=== PATIENT | male | born 1945 | race Two or more races ===

== ENCOUNTER 2020-05-09 11:17 | Emergency (ER) | payer MEDICARE, MEDICAID ==
[~2020-05-09] VITALS: Ht 170.2 cm; Wt 78.8 kg
[~2020-05-09 11:17] MED LIST: ASPI-611 PO; ERGO500041 PO; HYDR-3964 PO; NITR0.4T SL; NOR5T PO; PANT40TA39 PO; ROSU20TA2 PO
[2020-05-09 11:51] VITALS: BP 167/86
[2020-05-09] MEDS ORDERED: ketorolac trometh. 30mg/ml inj. IM ONE (13:05)
[2020-05-09] MEDS ORDERED: CYCL-1 PO (13:08)
== END 2020-05-09 13:23 | disposition home or self-care (01) ==
LOC: ER 11:17
DX: M25.551 Pain in right hip (principal); I25.2 Old myocardial infarction; Z98.61 Coronary angioplasty status; Z95.1 Presence of aortocoronary bypass graft; Z88.2 Allergy status to sulfonamides; Z79.82 Long term (current) use of aspirin; Z79.899 Other long term (current) drug therapy
CPT/HCPCS: 73502; 96372; 99283; J1885

== ENCOUNTER 2022-10-01 20:23 | Inpatient (IN) | payer BC, MEDICAID ==
[~2022-10-01] VITALS: Ht 170.2 cm; Wt 72.5 kg
[~2022-10-01 20:23] MED LIST changes: +ALBU6.7H14 INH; +ASPI-1071 PO; -ASPI-611 PO; +ATOR20TA66 PO; +BUDE10.22 INH; +CLOP75TA34 PO; +EMPA10TA PO; -ERGO500041 PO; -HYDR-3964 PO; +HYDR-3972 PO; +LISI2.5T14 PO; +METO-395 PO; -NITR0.4T SL; +NITR0.4T51 SL; -NOR5T PO; +OXYB5TAB16 PO; +PRED10TA23 PO; -ROSU20TA2 PO
[2022-10-01 20:44] LABS: BASOPHILS # (AUTO) 0.2 X10'3 (0-0.2); BASOPHILS % (AUTO) 0.6 % (0-1); EOSINOPHILS # (AUTO) 0.1 X10'3 (0-0.9); EOSINOPHILS % (AUTO) 0.4 % (0-6); HEMATOCRIT 26.4 % (42.0-52.0); LYMPHOCYTES # (AUTO) 3.2 X10'3 (1.1-4.8); LYMPHOCYTES % (AUTO) 13.7 % (21-51); MEAN CORPUSCULAR HEMOGLOBIN 22.9 PG (27.0-31.0); MEAN CORPUSCULAR HGB CONC 30.4 g/dL (33.0-36.5); MEAN CORPUSCULAR VOLUME 75.2 FL (78-98); MEAN PLATELET VOLUME 8.9 FL (7.4-10.4); MONOCYTES # (AUTO) 1.3 X10'3 (0-0.9); MONOCYTES % (AUTO) 5.7 % (2-12); NEUTROPHILS # (AUTO) 18.4 X10'3 (1.8-7.7); NEUTROPHILS % (AUTO) 79.6 % (42-75); PLATELET COUNT 217 X10'3 (140-440); RED BLOOD COUNT 3.52 X10'6 (4.70-6.10); RED CELL DISTRIBUTION WIDTH 18.7 % (11.5-14.5); WHITE BLOOD COUNT 23.1 X10'3 (4.5-11.0)
[2022-10-01 20:55] LABS: ALANINE AMINOTRANSFERASE 63 U/L (12-78); ALBUMIN 2.6 G/DL (3.4-5.0); ALBUMIN/GLOBULIN RATIO 0.8 (1.1-1.5); ALKALINE PHOSPHATASE 102 IU/L (46-116); ANION GAP 17 (8-16); ASPARTATE AMINO TRANSFERASE 18 U/L (10-37); BILIRUBIN,TOTAL 0.4 MG/DL (0.1-1.0); BLOOD UREA NITROGEN 12 MG/DL (7-18); BUN/CREATININE RATIO 9.2 (10.0-20.0); CALCIUM 8.6 MG/DL (8.5-10.1); CHLORIDE 107 MMOL/L (99-107); CREATININE 1.31 MG/DL (0.60-1.10); GLUCOSE 166 MG/DL (70-104); POTASSIUM 3.4 MMOL/L (3.5-5.1); SODIUM 144 MMOL/L (135-145); TOTAL CARBON DIOXIDE 20.4 MMOL/L (24-32); eGFR 53 ML/MIN
[2022-10-01] MEDS ORDERED: furosemide 10 MG/1 ML 10ml inj IV ONE (21:50)
[2022-10-01] MEDS ORDERED: POTASSIUM BICARB 20meq eff tab 20 MEQ TABLET.EFF PO ONE (21:55)
[2022-10-01 22:17] LABS: ANISOCYTOSIS 2+; HYPOCHROMASIA 2+; LARGE PLATELETS FEW; MICROCYTOSIS 1+; PLATELET ESTIMATE NORMAL; SMUDGE CELLS 1+; TOTAL CELLS COUNTED 100
[2022-10-01 22:18] LABS: POLYCHROMASIA FEW; TARGET CELLS FEW
[2022-10-01 22:19] LABS: ELLIPTOCYTES FEW
[2022-10-01] MEDS ORDERED: magnesium hydroxide 30ml (MOM) UD suspension PO PRN (23:10)
[2022-10-01] MEDS ORDERED: potassium Cl 40MEQ/1/2NS 520ml 520 ML IV PRN (23:10)
[2022-10-01] MEDS ORDERED: acetaminophen 325mg tablet PO PRN (23:10)
[2022-10-01] MEDS ORDERED: mag hydrox/Alum hydrox/simeth 30ml oral suspension PO PRN (23:10)
[2022-10-01] MEDS ORDERED: ondansetron/PF 4mg/2ml inj IV PRN (23:10)
[2022-10-01] MEDS ORDERED: magnesium 4gm in 100ml NS 100 ML IV PRN (23:10)
[2022-10-01] MEDS ORDERED: magnesium 2GM in 50ml NS 50 ML IV PRN (23:10)
[2022-10-01] MEDS ORDERED: potassium Cl 20 mEq SR tablet PO PRN (23:10)
[2022-10-01] MEDS ORDERED: magnesium Cl slow-release 64mg tablet PO PRN (23:10)
[2022-10-01] MEDS ORDERED: sodium ferric gluc complex inj 125 MG in normal saline 100ml IV soln 100 ML IV ONE (23:15)
[2022-10-01] MEDS: potassium Cl 20 mEq SR tablet PO PRN (23:23)
[2022-10-01] MEDS ORDERED: LISI20TA28 PO (23:50)
[2022-10-01] MEDS ORDERED: ALBU90AE2 IH (23:50)
[2022-10-01] MEDS ORDERED: EMPA10TA PO (23:51)
[2022-10-01] MEDS ORDERED: CLOP75TA34 PO (23:53)
[2022-10-01] MEDS ORDERED: METO-384 PO (23:54)
[2022-10-01] MEDS ORDERED: OXYB5TAB16 PO (23:55)
[2022-10-01] MEDS ORDERED: ATOR80TA PO (23:57)
[2022-10-01] MEDS ORDERED: NITR0.4T51 SL (23:58)
[2022-10-02] VITALS (7 sets, daily range): BP systolic 90–109; BP diastolic 45–66
[2022-10-02] MEDS ORDERED: ASPI81TA52 PO
[2022-10-02] MEDS ORDERED: BUDE10.22 INH (00:02)
[2022-10-02] MEDS ORDERED: AMLO5TAB16 PO (00:06)
[2022-10-02] MEDS ORDERED: PANT40TA54 PO (00:06)
[2022-10-02] MEDS ORDERED: LISI2.5T14 PO (00:18)
[2022-10-02] MEDS ORDERED: nitroGLYCERIN 0.4mg SUBLingual tab SL PRN (00:30)
[2022-10-02] MEDS: HYDROcodone/acetaminophen 10/325mg tab PO SCH ×3 (01:05→16:13)
[2022-10-02] MEDS ORDERED: albuterol 2.5 MG/3 ML nebule NEB PRN (01:05)
[2022-10-02] MEDS: albuterol 2.5 MG/3 ML nebule NEB SCH ×4 (03:00→19:51)
--- NOTE | 2022-10-02 06:20 | NUR ---
Patient in room PCU 3016. I have received report from ALYSE Tsang and had the opportunity to ask questions and assume patient care.
[2022-10-02 06:21] LABS: BASOPHILS # (AUTO) 0.1 X10'3 (0-0.2); BASOPHILS % (AUTO) 0.4 % (0-1); EOSINOPHILS # (AUTO) 0.1 X10'3 (0-0.9); EOSINOPHILS % (AUTO) 0.7 % (0-6); HEMATOCRIT 26.4 % (42.0-52.0); HEMOGLOBIN 8.1 g/dl (14.0-17.9); LYMPHOCYTES # (AUTO) 3.5 X10'3 (1.1-4.8); LYMPHOCYTES % (AUTO) 15.6 % (21-51); MEAN CORPUSCULAR HEMOGLOBIN 23.2 PG (27.0-31.0); MEAN CORPUSCULAR HGB CONC 30.8 g/dL (33.0-36.5); MEAN CORPUSCULAR VOLUME 75.3 FL (78-98); MEAN PLATELET VOLUME 8.8 FL (7.4-10.4); MONOCYTES # (AUTO) 1.4 X10'3 (0-0.9); MONOCYTES % (AUTO) 6.1 % (2-12); NEUTROPHILS # (AUTO) 17.3 X10'3 (1.8-7.7); NEUTROPHILS % (AUTO) 77.2 % (42-75); PLATELET COUNT 205 X10'3 (140-440); RED BLOOD COUNT 3.51 X10'6 (4.70-6.10); RED CELL DISTRIBUTION WIDTH 18.6 % (11.5-14.5); WHITE BLOOD COUNT 22.3 X10'3 (4.5-11.0)
--- NOTE | 2022-10-02 06:27 | NUR ---
Problems reprioritized. Patient report given, questions answered & plan of care reviewed with DAY SHIFT ORTHOPEDIC PHYSICAL THERAPIST. Addendum: 10/02/22 at 06 by Trinh Villatoro RN Amended: Links added.
[2022-10-02 06:29] LABS: ALANINE AMINOTRANSFERASE 54 U/L (12-78); ALBUMIN 2.5 G/DL (3.4-5.0); ALBUMIN/GLOBULIN RATIO 0.7 (1.1-1.5); ALKALINE PHOSPHATASE 100 IU/L (46-116); ANION GAP 10 (8-16); ASPARTATE AMINO TRANSFERASE 18 U/L (10-37); BILIRUBIN,TOTAL 0.5 MG/DL (0.1-1.0); BLOOD UREA NITROGEN 12 MG/DL (7-18); CALCIUM 8.1 MG/DL (8.5-10.1); CHLORIDE 108 MMOL/L (99-107); GLUCOSE 134 MG/DL (70-104); MAGNESIUM 1.7 MG/DL (1.5-2.4); POTASSIUM 3.1 MMOL/L (3.5-5.1); SODIUM 141 MMOL/L (135-145); TOTAL CARBON DIOXIDE 22.7 MMOL/L (24-32); TOTAL PROTEIN 5.9 G/DL (6.4-8.2); eGFR 59 ML/MIN
[2022-10-02] MEDS: K and/or MAG REPLACEMENT MC SCH ×2 (08:00→20:00)
[2022-10-02] MEDS ORDERED: amLODIPine 5mg tablet PO SCH (08:00)
[2022-10-02] MEDS: furosemide 20 MG/2 ML vial IV SCH ×2 (08:13→21:00)
[2022-10-02] MEDS: budesonide 0.5mg/2ml UD nebule IH SCH ×3 (08:44→19:51)
[2022-10-02] MEDS: heparin, porcine 5000 units/ml vial SQ SCH ×2 (09:00→20:10)
[2022-10-02] MEDS: atorvastatin 20mg tablet PO SCH (09:00)
[2022-10-02] MEDS: pantoprazole 40mg Tablet.DR PO SCH (09:00)
[2022-10-02] MEDS: docusate sod 100mg capsule PO SCH ×2 (09:00→20:11)
[2022-10-02] MEDS: EMPAGLIFLOZIN 10 MG TABLET PO SCH (09:01)
[2022-10-02] MEDS: metoprolol succinate 25mg (24-HOUR) SR. Tablet PO SCH (09:01)
[2022-10-02] MEDS: aspirin 81mg, enteric-coated 1 TAB TABLET.DR PO SCH (09:01)
[2022-10-02] MEDS: oxybutynin 5mg tablet PO SCH ×3 (09:02→20:11)
[2022-10-02] MEDS: potassium Cl 20 mEq SR tablet PO PRN ×2 (09:02→16:13)
[2022-10-02] MEDS: ranolazine 500mg SR tablet (Q12H) PO SCH ×2 (10:53→20:11)
--- NOTE | 2022-10-02 15:56 | NUR ---
AGREE WITH RUG CUTTER AM ASSESSMENT.
--- NOTE | 2022-10-02 18:17 | NUR ---
Received report from naren CULLEN MD paged - Pt [phone], Please reconcile home meds. Thanks, Linette Rodriguez @[phone].
--- NOTE | 2022-10-02 18:31 | NUR ---
Problems reprioritized. Patient report given, questions answered & plan of care reviewed with Linette, SLIPPER MAKER.
[2022-10-02 19:41] LABS: CLARITY,URINE CLEAR (Clear); COLOR,URINE YELLOW (Yellow); GLUCOSE, URINE >=1000 mg/dl (Neg); KETONES,URINE NEGATIVE (Neg); LEUKOCYTE ESTERASE ,URINE NEGATIVE (Neg); NITRITES, URINE NEGATIVE (Neg); OCCULT BLOOD,URINE NEGATIVE (Neg); PROTEIN,URINE NEGATIVE (Neg); UROBILINOGEN,URINE 0.2 E.U/dL (0.2-1.0)
[2022-10-02 20:19] LABS: UA COLLECTION TYPE NON-SPECIFIED
[2022-10-02 20:20] LABS: RBC,URINE NONE SEEN /HPF (0-2); SQUAMOUS EPITHELIAL CELL,UR FEW /LPF (FEW); WBC,URINE 0-4 /HPF (0-4)
[2022-10-02 20:21] LABS: BACTERIA,URINE FEW /HPF (Neg); HYALINE CASTS 0-3 /LPF (NEGATIVE)
[2022-10-03 02:00] VITALS: BP 109/60
--- NOTE | 2022-10-03 02:00 | NUR ---
Pt requested that he not be woken up at midnight to take pain medicine. LN went into room at 015 ad pt was asleep. At approx 0200 pt requested pain med. LN explained to pt that she respected his request and did not awaken him at 0015, pt was upset stating he was awake. LN also explained that she would pass onto the day nurse to request med not be scheduled at midnight but at HS or PRN. Pt stated it has already been changed to that. Pt was given his dose of [place] at 0200.
--- NOTE | 2022-10-03 02:26 | NUR ---
AGREE WITH IT APPLICATIONS DEVELOPER ASSESSMENT
[2022-10-03] MEDS: albuterol 2.5 MG/3 ML nebule NEB SCH ×4 (02:43→21:11)
[2022-10-03 05:36] LABS: BASOPHILS # (AUTO) 0.2 X10'3 (0-0.2); BASOPHILS % (AUTO) 0.9 % (0-1); EOSINOPHILS # (AUTO) 0.3 X10'3 (0-0.9); EOSINOPHILS % (AUTO) 1.3 % (0-6); HEMATOCRIT 27.7 % (42.0-52.0); HEMOGLOBIN 8.5 g/dl (14.0-17.9); LYMPHOCYTES # (AUTO) 2.6 X10'3 (1.1-4.8); MEAN CORPUSCULAR HEMOGLOBIN 22.6 PG (27.0-31.0); MEAN CORPUSCULAR HGB CONC 30.6 g/dL (33.0-36.5); MEAN CORPUSCULAR VOLUME 74.1 FL (78-98); MEAN PLATELET VOLUME 8.6 FL (7.4-10.4); MONOCYTES # (AUTO) 1.1 X10'3 (0-0.9); MONOCYTES % (AUTO) 5.6 % (2-12); NEUTROPHILS % (AUTO) 79.2 % (42-75); PLATELET COUNT 207 X10'3 (140-440); RED BLOOD COUNT 3.74 X10'6 (4.70-6.10); RED CELL DISTRIBUTION WIDTH 18.7 % (11.5-14.5); WHITE BLOOD COUNT 20.2 X10'3 (4.5-11.0)
[2022-10-03 06:04] LABS: ALANINE AMINOTRANSFERASE 48 U/L (12-78); ALBUMIN 2.5 G/DL (3.4-5.0); ALBUMIN/GLOBULIN RATIO 0.7 (1.1-1.5); ALKALINE PHOSPHATASE 104 IU/L (46-116); ANION GAP 14 (8-16); ASPARTATE AMINO TRANSFERASE 19 U/L (10-37); BILIRUBIN,TOTAL 0.6 MG/DL (0.1-1.0); BLOOD UREA NITROGEN 17 MG/DL (7-18); BUN/CREATININE RATIO 12.1 (10.0-20.0); CALCIUM 8.3 MG/DL (8.5-10.1); CHLORIDE 108 MMOL/L (99-107); CREATININE 1.41 MG/DL (0.60-1.10); GLUCOSE 134 MG/DL (70-104); MAGNESIUM 1.6 MG/DL (1.5-2.4); POTASSIUM 3.6 MMOL/L (3.5-5.1); SODIUM 145 MMOL/L (135-145); TOTAL CARBON DIOXIDE 23.4 MMOL/L (24-32); TOTAL PROTEIN 6.1 G/DL (6.4-8.2); eGFR 49 ML/MIN
--- NOTE | 2022-10-03 06:15 | NUR ---
Patient in room PCU 3016. I have received report from Linette TOURE and had the opportunity to ask questions and assume patient care.
[2022-10-03 07:00] VITALS: BP 118/64
[2022-10-03] MEDS: budesonide 0.5mg/2ml UD nebule IH SCH ×2 (07:35→21:11)
[2022-10-03] MEDS: furosemide 20 MG/2 ML vial IV SCH ×2 (07:45→20:41)
[2022-10-03] MEDS ORDERED: EMPAGLIFLOZIN 10 MG TABLET PO SCH (08:00)
[2022-10-03] MEDS: K and/or MAG REPLACEMENT MC SCH ×2 (08:00→20:00)
[2022-10-03] MEDS: ranolazine 500mg SR tablet (Q12H) PO SCH ×2 (08:40→20:27)
[2022-10-03] MEDS: clopidogrel 75mg tablet PO SCH (08:40)
[2022-10-03] MEDS: metoprolol succinate 25mg (24-HOUR) SR. Tablet PO SCH (08:40)
[2022-10-03] MEDS: pantoprazole 40mg Tablet.DR PO SCH (08:40)
[2022-10-03] MEDS: HYDROcodone/acetaminophen 10/325mg tab PO SCH ×2 (08:41)
[2022-10-03] MEDS: oxybutynin 5mg tablet PO SCH ×3 (08:41→20:27)
[2022-10-03] MEDS: docusate sod 100mg capsule PO SCH ×2 (08:41→20:32)
[2022-10-03] MEDS: aspirin 81mg, enteric-coated 1 TAB TABLET.DR PO SCH (08:41)
[2022-10-03] MEDS: atorvastatin 20mg tablet PO SCH (08:41)
[2022-10-03] MEDS: EMPAGLIFLOZIN 10 MG TABLET PO SCH (08:41)
[2022-10-03] MEDS: heparin, porcine 5000 units/ml vial SQ SCH ×2 (08:42→20:26)
[2022-10-03] MEDS ORDERED: furosemide 20 MG/2 ML vial IV ONE (10:55)
[2022-10-03 11:00] VITALS: BP 107/59
[2022-10-03 15:14] VITALS: BP 107/55
--- NOTE | 2022-10-03 16:11 | NUR ---
Spoke with Dr. Aquino about patient's [facility] schedule ending up at [address] Aquino gave order to change it from scheduled to PRN.
--- NOTE | 2022-10-03 17:11 | NUR ---
AGREE WITH PARTS PULLER AM ASSESSMENT.
--- NOTE | 2022-10-03 18:36 | NUR ---
Problems reprioritized. Patient report given, questions answered & plan of care reviewed with Paloma TOURE.
--- NOTE | 2022-10-03 18:46 | NUR ---
Patient in room PCU 3016. I have received report from Nilda TOURE and had the opportunity to ask questions and assume patient care.
[2022-10-03 19:00] VITALS: BP 111/50
[2022-10-03] MEDS: HYDROcodone/acetaminophen 10/325mg tab PO PRN (20:42)
[2022-10-03 22:00] VITALS: BP 96/55
[2022-10-04] VITALS (8 sets, daily range): BP systolic 81–104; BP diastolic 40–65
[2022-10-04] MEDS: albuterol 2.5 MG/3 ML nebule NEB SCH ×4 (03:00→20:39)
--- NOTE | 2022-10-04 05:43 | NUR ---
AGREE WITH STONE OPERATOR ASSESSMENTS
--- NOTE | 2022-10-04 06:30 | NUR ---
Patient in room PCU 3016. I have received report from Paloma TOURE and had the opportunity to ask questions and assume patient care.
--- NOTE | 2022-10-04 06:51 | NUR ---
Problems reprioritized. Patient report given, questions answered & plan of care reviewed with Nilda TOURE.
[2022-10-04 06:54] LABS: BASOPHILS # (AUTO) 0.1 X10'3 (0-0.2); BASOPHILS % (AUTO) 0.5 % (0-1); EOSINOPHILS # (AUTO) 0.3 X10'3 (0-0.9); EOSINOPHILS % (AUTO) 2.1 % (0-6); HEMATOCRIT 25.2 % (42.0-52.0); HEMOGLOBIN 7.8 g/dl (14.0-17.9); LYMPHOCYTES # (AUTO) 2.4 X10'3 (1.1-4.8); LYMPHOCYTES % (AUTO) 17.5 % (21-51); MEAN CORPUSCULAR HEMOGLOBIN 23.1 PG (27.0-31.0); MEAN CORPUSCULAR HGB CONC 30.8 g/dL (33.0-36.5); MEAN CORPUSCULAR VOLUME 74.8 FL (78-98); MEAN PLATELET VOLUME 8.3 FL (7.4-10.4); MONOCYTES # (AUTO) 0.9 X10'3 (0-0.9); MONOCYTES % (AUTO) 6.4 % (2-12); NEUTROPHILS # (AUTO) 9.9 X10'3 (1.8-7.7); NEUTROPHILS % (AUTO) 73.5 % (42-75); PLATELET COUNT 191 X10'3 (140-440); RED BLOOD COUNT 3.37 X10'6 (4.70-6.10); RED CELL DISTRIBUTION WIDTH 19.4 % (11.5-14.5); WHITE BLOOD COUNT 13.5 X10'3 (4.5-11.0)
[2022-10-04 07:08] LABS: ALANINE AMINOTRANSFERASE 47 U/L (12-78); ALBUMIN 2.3 G/DL (3.4-5.0); ALBUMIN/GLOBULIN RATIO 0.7 (1.1-1.5); ALKALINE PHOSPHATASE 147 IU/L (46-116); ANION GAP 9 (8-16); ASPARTATE AMINO TRANSFERASE 30 U/L (10-37); BILIRUBIN,TOTAL 0.5 MG/DL (0.1-1.0); BLOOD UREA NITROGEN 20 MG/DL (7-18); BUN/CREATININE RATIO 15.3 (10.0-20.0); CALCIUM 8.4 MG/DL (8.5-10.1); CHLORIDE 107 MMOL/L (99-107); CREATININE 1.31 MG/DL (0.60-1.10); GLUCOSE 110 MG/DL (70-104); MAGNESIUM 1.7 MG/DL (1.5-2.4); POTASSIUM 3.3 MMOL/L (3.5-5.1); SODIUM 142 MMOL/L (135-145); TOTAL CARBON DIOXIDE 26.4 MMOL/L (24-32); TOTAL PROTEIN 5.7 G/DL (6.4-8.2); eGFR 53 ML/MIN
[2022-10-04] MEDS: budesonide 0.5mg/2ml UD nebule IH SCH ×2 (07:13→20:39)
[2022-10-04] MEDS ORDERED: lisinopril 2.5mg tablet PO SCH (08:00)
[2022-10-04] MEDS: K and/or MAG REPLACEMENT MC SCH ×2 (08:00→20:00)
[2022-10-04] MEDS: furosemide 20 MG/2 ML vial IV SCH ×2 (08:04→21:05)
[2022-10-04] MEDS: aspirin 81mg, enteric-coated 1 TAB TABLET.DR PO SCH (08:28)
[2022-10-04] MEDS: ranolazine 500mg SR tablet (Q12H) PO SCH ×2 (08:28→22:01)
[2022-10-04] MEDS: heparin, porcine 5000 units/ml vial SQ SCH ×2 (08:28→22:02)
[2022-10-04] MEDS: oxybutynin 5mg tablet PO SCH ×3 (08:28→21:59)
[2022-10-04] MEDS: pantoprazole 40mg Tablet.DR PO SCH (08:29)
[2022-10-04] MEDS: potassium Cl 20 mEq SR tablet PO PRN ×3 (08:29→21:59)
[2022-10-04] MEDS: EMPAGLIFLOZIN 10 MG TABLET PO SCH (08:29)
[2022-10-04] MEDS: atorvastatin 20mg tablet PO SCH (08:29)
[2022-10-04] MEDS: docusate sod 100mg capsule PO SCH ×2 (08:29→22:01)
[2022-10-04] MEDS: clopidogrel 75mg tablet PO SCH (08:29)
[2022-10-04] MEDS: metoprolol succinate 25mg (24-HOUR) SR. Tablet PO SCH (08:30)
[2022-10-04] MEDS: HYDROcodone/acetaminophen 10/325mg tab PO PRN ×2 (08:35→22:00)
--- NOTE | 2022-10-04 13:46 | NUR ---
PAGER ID: [phone] MESSAGE: [id number] Pavan. Received fax back from [facility] they have no record of the patient. I will try and find out maybe a different place. Thank you Nilda TOURE [phone]
--- NOTE | 2022-10-04 13:54 | NUR ---
I AGREE WITH FOOD PREPARATION SUPERVISOR ASSESSMENT
--- NOTE | 2022-10-04 14:00 | NUR ---
PAGER ID: [phone] MESSAGE: [phone] Pavan. Patient hasn't been seen by a oncologist. Thank you Nilda TOURE [phone]
[2022-10-04] MEDS ORDERED: metolazone 2.5mg tablet PO ONE (14:45)
--- NOTE | 2022-10-04 18:21 | NUR ---
Problems reprioritized. Patient report given, questions answered & plan of care reviewed with Paloma TOURE.
--- NOTE | 2022-10-04 18:30 | NUR ---
Patient in room PCU 3016. I have received report from Yoselyn TOURE and had the opportunity to ask questions and assume patient care.
[2022-10-05] VITALS: BP 95/52
[2022-10-05 01:00] VITALS: BP 95/52
[2022-10-05] MEDS: albuterol 2.5 MG/3 ML nebule NEB SCH ×2 (03:00→07:18)
--- NOTE | 2022-10-05 06:30 | NUR ---
Patient in room PCU 3016. I have received report from Peyton TOURE and had the opportunity to ask questions and assume patient care.
--- NOTE | 2022-10-05 06:30 | NUR ---
Problems reprioritized. Patient report given, questions answered & plan of care reviewed with Nilda TOURE.
[2022-10-05 07:00] VITALS: BP 104/62
[2022-10-05] MEDS: budesonide 0.5mg/2ml UD nebule IH SCH (07:18)
[2022-10-05 07:22] LABS: BASOPHILS # (AUTO) 0.1 X10'3 (0-0.2); BASOPHILS % (AUTO) 0.8 % (0-1); EOSINOPHILS # (AUTO) 0.4 X10'3 (0-0.9); EOSINOPHILS % (AUTO) 2.7 % (0-6); HEMATOCRIT 27.5 % (42.0-52.0); HEMOGLOBIN 8.4 g/dl (14.0-17.9); LYMPHOCYTES # (AUTO) 2.4 X10'3 (1.1-4.8); LYMPHOCYTES % (AUTO) 16.8 % (21-51); MEAN CORPUSCULAR HEMOGLOBIN 22.7 PG (27.0-31.0); MEAN CORPUSCULAR HGB CONC 30.5 g/dL (33.0-36.5); MEAN CORPUSCULAR VOLUME 74.4 FL (78-98); MEAN PLATELET VOLUME 8.7 FL (7.4-10.4); MONOCYTES % (AUTO) 6.8 % (2-12); NEUTROPHILS # (AUTO) 10.6 X10'3 (1.8-7.7); NEUTROPHILS % (AUTO) 72.9 % (42-75); PLATELET COUNT 227 X10'3 (140-440); RED CELL DISTRIBUTION WIDTH 19.5 % (11.5-14.5); WHITE BLOOD COUNT 14.6 X10'3 (4.5-11.0)
[2022-10-05 07:42] LABS: ALANINE AMINOTRANSFERASE 38 U/L (12-78); ALBUMIN 2.4 G/DL (3.4-5.0); ALBUMIN/GLOBULIN RATIO 0.7 (1.1-1.5); ALKALINE PHOSPHATASE 128 IU/L (46-116); ANION GAP 11 (8-16); ASPARTATE AMINO TRANSFERASE 15 U/L (10-37); BILIRUBIN,TOTAL 0.6 MG/DL (0.1-1.0); BLOOD UREA NITROGEN 21 MG/DL (7-18); BUN/CREATININE RATIO 14.2 (10.0-20.0); CALCIUM 8.6 MG/DL (8.5-10.1); CHLORIDE 103 MMOL/L (99-107); CREATININE 1.48 MG/DL (0.60-1.10); GLUCOSE 118 MG/DL (70-104); MAGNESIUM 1.8 MG/DL (1.5-2.4); POTASSIUM 3.9 MMOL/L (3.5-5.1); SODIUM 140 MMOL/L (135-145); TOTAL CARBON DIOXIDE 26.3 MMOL/L (24-32); eGFR 46 ML/MIN
[2022-10-05] MEDS: furosemide 20 MG/2 ML vial IV SCH (08:00)
[2022-10-05] MEDS ORDERED: metoprolol succinate 25mg (24-HOUR) SR. Tablet PO SCH (08:00)
[2022-10-05] MEDS: K and/or MAG REPLACEMENT MC SCH (08:00)
[2022-10-05] MEDS: oxybutynin 5mg tablet PO SCH ×2 (08:43→13:35)
[2022-10-05] MEDS: docusate sod 100mg capsule PO SCH (08:44)
[2022-10-05] MEDS: ranolazine 500mg SR tablet (Q12H) PO SCH (08:44)
[2022-10-05] MEDS: aspirin 81mg, enteric-coated 1 TAB TABLET.DR PO SCH (08:44)
[2022-10-05] MEDS: pantoprazole 40mg Tablet.DR PO SCH (08:44)
[2022-10-05] MEDS: HYDROcodone/acetaminophen 10/325mg tab PO PRN (08:44)
[2022-10-05] MEDS: atorvastatin 20mg tablet PO SCH (08:44)
[2022-10-05] MEDS: clopidogrel 75mg tablet PO SCH (08:44)
[2022-10-05] MEDS: EMPAGLIFLOZIN 10 MG TABLET PO SCH (08:44)
[2022-10-05] MEDS: heparin, porcine 5000 units/ml vial SQ SCH (08:45)
[2022-10-05 10:00] VITALS: BP 101/55
--- NOTE | 2022-10-05 10:34 | NUR ---
Spoke with Dr Aquino about patient not having a IV. Gave order for a 20 mg Lasix tab once.
[2022-10-05] MEDS ORDERED: furosemide 20MG tablet PO ONE (10:35)
--- NOTE | 2022-10-05 10:51 | NUR ---
O2 Sat at rest on room air: 94% If below 89%: Recovery O2 Sat at rest on LPM:___%:___% via (mask/nasal cannula, etc..) No further documentation is necessary. If O2 Sat did not drop below 89% on room air,ambulate patient on room air. O2 Sat while ambulating on room air: 88% Recovery O2 Sat while ambulating on 2 LPM: 95% No further documentation is necessary. If patient does not drop below 89% while ambulating, he/she does not qualify for home O2.
--- NOTE | 2022-10-05 11:24 | NUR ---
Malnutrition consult: Pt reports 24-33 lb wt loss with decreased appetite/PO intake per malnutrition risk screen with RN. Current bed scaled wt of 72.5 kg is +1.5 kg from recent admit where pt was 71 kg 09/12, also with a bed scale. No apparent wt loss. Pt currently on a heart healthy diet and eating well, documented with 100% PO intake since dinner 10/02 with average 89% PO intake since admit meeting estimated nutrient needs. Pt with no documented significant decrease in muscle strength or edema. Pt currently lacks a minimum of two criteria for malnutrition. Pt admit for NSTEMI. LBM 10/02 per EMR. Pt receiving routine bowel care with additional PRN bowel care available. D/w dietary to send prunes and prune juice with next meal to further assist with bowel regularity. Will continue to follow and monitor need for additional nutrition intervention. Recommendations: 1) Continue heart healthy diet 2) Routine bowel care 3) Weekly scaled weights Addendum: 10/05/22 at [address] Amended: Links added.
[2022-10-05] MEDS ORDERED: METO-395 PO (11:32)
[2022-10-05] MEDS ORDERED: POTA-206 PO (11:32)
[2022-10-05] MEDS ORDERED: FURO40TA4 PO (11:32)
[2022-10-05] MEDS ORDERED: RANO500T6 PO (11:32)
--- NOTE | 2022-10-05 14:45 | NUR ---
Patient discharged home with all belongings and discharge instructions. IV removed and tele monitor removed and returned to manager telemetry. Escorted out via wheel chair and left in private vehicle.
== END 2022-10-05 14:40 | disposition home or self-care (01) | DRG 280 ==
LOC: ER 20:24 → ED HOLD 23:13 → PCU 3S 10-02 01:19
PROVIDERS: ADMIT Internal Medicine; ATTEND Internal Medicine
DX: I21.4 Non-ST elevation (NSTEMI) myocardial infarction (principal); I50.23 Acute on chronic systolic (congestive) heart failure; N17.0 Acute kidney failure with tubular necrosis; J96.21 Acute and chronic respiratory failure with hypoxia; I13.0 Hypertensive heart and chronic kidney disease with heart failure and stage 1 through stage 4 chronic kidney disease, or unspecified chronic kidney disease; E78.00 Pure hypercholesterolemia, unspecified; D72.829 Elevated white blood cell count, unspecified; R26.2 Difficulty in walking, not elsewhere classified; D50.9 Iron deficiency anemia, unspecified; I73.9 Peripheral vascular disease, unspecified; J44.9 Chronic obstructive pulmonary disease, unspecified; E87.6 Hypokalemia; I95.9 Hypotension, unspecified; N18.9 Chronic kidney disease, unspecified; Z72.0 Tobacco use; Z79.82 Long term (current) use of aspirin; I25.2 Old myocardial infarction; Z79.899 Other long term (current) drug therapy; Z80.42 Family history of malignant neoplasm of prostate; Z80.7 Family history of other malignant neoplasms of lymphoid, hematopoietic and related tissues; Z80.8 Family history of malignant neoplasm of other organs or systems; Z82.49 Family history of ischemic heart disease and other diseases of the circulatory system; Z85.51 Personal history of malignant neoplasm of bladder; Z88.1 Allergy status to other antibiotic agents; Z88.2 Allergy status to sulfonamides; Z95.1 Presence of aortocoronary bypass graft; Z95.5 Presence of coronary angioplasty implant and graft; Z90.49 Acquired absence of other specified parts of digestive tract; Z71.6 Tobacco abuse counseling
CPT/HCPCS: 36415; 71045; 80053; 81001; 83735; 83880; 84145; 84484; 85007; 85025; 87040; 87081; 93005; 93308; 94640; 94760; 97161; 97530; 99285; A4615; G0378; J1644; J1940; J2916; J3490

== ENCOUNTER 2022-10-16 07:25 | Emergency (ER) | payer BC, MEDICAID ==
[~2022-10-16] VITALS: Ht 170.2 cm; Wt 63.6 kg
[~2022-10-16 07:25] MED LIST changes: -ALBU6.7H14 INH; +ALBU90AE2 IH; +AMLO5TAB16 PO; -ASPI-1071 PO; +ASPI81TA52 PO; -ATOR20TA66 PO; +ATOR80TA PO; +FURO40TA4 PO; -PANT40TA39 PO; +PANT40TA54 PO; +POTA-206 PO; -PRED10TA23 PO; +RANO500T6 PO
[2022-10-16 08:05] LABS: BASOPHILS # (AUTO) 0.1 X10'3 (0-0.2); BASOPHILS % (AUTO) 0.7 % (0-1); EOSINOPHILS # (AUTO) 0.3 X10'3 (0-0.9); EOSINOPHILS % (AUTO) 2.1 % (0-6); HEMATOCRIT 31.4 % (42.0-52.0); HEMOGLOBIN 9.6 g/dl (14.0-17.9); LYMPHOCYTES # (AUTO) 2.7 X10'3 (1.1-4.8); LYMPHOCYTES % (AUTO) 16.3 % (21-51); MEAN CORPUSCULAR HEMOGLOBIN 22.5 PG (27.0-31.0); MEAN CORPUSCULAR HGB CONC 30.5 g/dL (33.0-36.5); MEAN CORPUSCULAR VOLUME 73.6 FL (78-98); MONOCYTES # (AUTO) 1.3 X10'3 (0-0.9); MONOCYTES % (AUTO) 7.8 % (2-12); NEUTROPHILS # (AUTO) 11.9 X10'3 (1.8-7.7); NEUTROPHILS % (AUTO) 73.1 % (42-75); PLATELET COUNT 508 X10'3 (140-440); RED BLOOD COUNT 4.27 X10'6 (4.70-6.10); RED CELL DISTRIBUTION WIDTH 19.9 % (11.5-14.5); WHITE BLOOD COUNT 16.3 X10'3 (4.5-11.0)
[2022-10-16 08:07] LABS: ALANINE AMINOTRANSFERASE 23 U/L (12-78); ALBUMIN 2.6 G/DL (3.4-5.0); ALBUMIN/GLOBULIN RATIO 0.7 (1.1-1.5); ALKALINE PHOSPHATASE 107 IU/L (46-116); ANION GAP 12 (8-16); ASPARTATE AMINO TRANSFERASE 17 U/L (10-37); BILIRUBIN,TOTAL 0.3 MG/DL (0.1-1.0); BLOOD UREA NITROGEN 17 MG/DL (7-18); BUN/CREATININE RATIO 14.2 (10.0-20.0); CALCIUM 8.6 MG/DL (8.5-10.1); CHLORIDE 108 MMOL/L (99-107); GLUCOSE 160 MG/DL (70-104); POTASSIUM 3.8 MMOL/L (3.5-5.1); SODIUM 145 MMOL/L (135-145); TOTAL CARBON DIOXIDE 24.8 MMOL/L (24-32); TOTAL PROTEIN 6.4 G/DL (6.4-8.2); eGFR 59 ML/MIN
[2022-10-16] MEDS ORDERED: furosemide 10 MG/1 ML 10ml inj IV ONE (08:25)
[2022-10-16] MEDS ORDERED: furosemide 40mg/4ml inj IV ONE (08:25)
--- NOTE | 2022-10-16 08:42 | NUR ---
RN OBTAINING IV AT THIS TIME.
[2022-10-16 08:45] LABS: ANISOCYTOSIS 2+; ELLIPTOCYTES FEW; HYPOCHROMASIA 1+; MICROCYTOSIS 1+; PLATELET ESTIMATE INCREASED; POLYCHROMASIA FEW; STOMATOCYTES FEW; TEAR DROP CELLS FEW
--- NOTE | 2022-10-16 09:07 | NUR ---
IV WILL NEED TO BE OBTAINED BY US.
--- NOTE | 2022-10-16 09:26 | NUR ---
RN UNABLE TO OBTAIN IV WITH US. 2ND RN ATTEMPTING WITH US AT THIS TIME.
--- NOTE | 2022-10-16 09:52 | NUR ---
3RD RN ATTEMPTING TO OBTAIN IV AT THIS TIME.
[2022-10-16] MEDS ORDERED: POTA-207 PO (11:50)
[2022-10-16] MEDS ORDERED: ATOR-2 PO (11:50)
[2022-10-16] MEDS ORDERED: METO-395 PO (11:50)
[2022-10-16] MEDS ORDERED: CLOP-32 PO (11:50)
[2022-10-16] MEDS ORDERED: ASPI-611 PO (11:50)
[2022-10-16] MEDS ORDERED: FURO-150 PO (11:50)
[2022-10-16 11:56] VITALS: BP 117/69
--- NOTE | 2022-10-16 11:58 | NUR ---
PT CALLED HIS SON TO COME PICK HIM UP AND STATED THAT HIS SON WILL BRING HIS O2 TANK FROM HOME.
== END 2022-10-16 12:08 | disposition home or self-care (01) ==
LOC: ER 07:25
DX: R07.9 Chest pain, unspecified (principal); R06.02 Shortness of breath; E78.00 Pure hypercholesterolemia, unspecified; I11.0 Hypertensive heart disease with heart failure; J44.9 Chronic obstructive pulmonary disease, unspecified; Z88.8 Allergy status to other drugs, medicaments and biological substances; Z88.5 Allergy status to narcotic agent; Z79.899 Other long term (current) drug therapy; Z79.1 Long term (current) use of non-steroidal anti-inflammatories (NSAID); Z79.2 Long term (current) use of antibiotics
CPT/HCPCS: 36415; 71045; 80053; 83880; 84484; 85008; 85025; 93005; 96374; 99285; J1940

== ENCOUNTER 2022-10-18 18:51 | Emergency (ER) | payer BC, MEDICAID ==
[~2022-10-18] VITALS: Ht 170.2 cm; Wt 70.5 kg
[~2022-10-18 18:51] MED LIST changes: +ASPI-611 PO; +ATOR-2 PO; +CLOP-32 PO; +FURO-150 PO; +POTA-207 PO
[2022-10-18 19:01] VITALS: BP 118/77
[2022-10-18 19:24] LABS: BASOPHILS # (AUTO) 0.2 X10'3 (0-0.2); BASOPHILS % (AUTO) 1.2 % (0-1); EOSINOPHILS # (AUTO) 0.2 X10'3 (0-0.9); EOSINOPHILS % (AUTO) 1.1 % (0-6); HEMATOCRIT 28.7 % (42.0-52.0); HEMOGLOBIN 8.9 g/dl (14.0-17.9); LYMPHOCYTES # (AUTO) 3.9 X10'3 (1.1-4.8); LYMPHOCYTES % (AUTO) 26.2 % (21-51); MEAN CORPUSCULAR HEMOGLOBIN 22.2 PG (27.0-31.0); MEAN CORPUSCULAR HGB CONC 31.1 g/dL (33.0-36.5); MEAN CORPUSCULAR VOLUME 71.6 FL (78-98); MONOCYTES # (AUTO) 1.5 X10'3 (0-0.9); MONOCYTES % (AUTO) 10.2 % (2-12); NEUTROPHILS # (AUTO) 9.1 X10'3 (1.8-7.7); NEUTROPHILS % (AUTO) 61.3 % (42-75); PLATELET COUNT 470 X10'3 (140-440); RED BLOOD COUNT 4.01 X10'6 (4.70-6.10); RED CELL DISTRIBUTION WIDTH 19.9 % (11.5-14.5); WHITE BLOOD COUNT 14.8 X10'3 (4.5-11.0)
[2022-10-18 19:46] LABS: ALANINE AMINOTRANSFERASE 25 U/L (12-78); ALBUMIN 2.7 G/DL (3.4-5.0); ALBUMIN/GLOBULIN RATIO 0.7 (1.1-1.5); ALKALINE PHOSPHATASE 111 IU/L (46-116); ANION GAP 10 (8-16); ASPARTATE AMINO TRANSFERASE 22 U/L (10-37); BILIRUBIN,TOTAL 0.4 MG/DL (0.1-1.0); BLOOD UREA NITROGEN 12 MG/DL (7-18); BUN/CREATININE RATIO 8.6 (10.0-20.0); CALCIUM 8.5 MG/DL (8.5-10.1); CHLORIDE 105 MMOL/L (99-107); CREATININE 1.39 MG/DL (0.60-1.10); GLUCOSE 112 MG/DL (70-104); SODIUM 143 MMOL/L (135-145); TOTAL CARBON DIOXIDE 27.7 MMOL/L (24-32); TOTAL PROTEIN 6.5 G/DL (6.4-8.2); eGFR 50 ML/MIN
[2022-10-18 19:50] LABS: ANISOCYTOSIS 2+; HYPOCHROMASIA 1+; MICROCYTOSIS 1+; PLATELET ESTIMATE INCREASED; TARGET CELLS FEW
[2022-10-18 19:51] LABS: ELLIPTOCYTES FEW; TEAR DROP CELLS FEW
[2022-10-18] MEDS ORDERED: albuterol 2.5 MG/3 ML nebule NEB ONE (20:00)
[2022-10-18] MEDS ORDERED: PRED10TA PO (20:47)
== END 2022-10-18 21:02 | disposition home or self-care (01) ==
LOC: ER 18:52
DX: J45.901 Unspecified asthma with (acute) exacerbation (principal); E78.00 Pure hypercholesterolemia, unspecified; Z90.49 Acquired absence of other specified parts of digestive tract; Z88.0 Allergy status to penicillin; Z88.2 Allergy status to sulfonamides; Z79.899 Other long term (current) drug therapy; Z79.1 Long term (current) use of non-steroidal anti-inflammatories (NSAID); Z79.2 Long term (current) use of antibiotics
CPT/HCPCS: 36415; 71045; 80053; 83880; 84484; 85008; 85025; 93005; 94640; 94760; 99285

== ENCOUNTER 2022-11-06 12:11 | Inpatient (IN) | payer BC, MEDICAID ==
[~2022-11-06] VITALS: Ht 170.2 cm; Wt 71.0 kg
[2022-11-06] VITALS (15 sets, daily range): BP systolic 104–112; BP diastolic 56–68; PULSE 60–118; RESP 20–26; TEMP 97–98; O2SAT 86–98
[~2022-11-06 12:11] MED LIST changes: +PRED10TA PO; +amiodarone 50MG/ML inj IV ONE; +epiNEPHrine 0.1mg/ml 10ml syringe ONE; +etomidate 2mg/ml inj. ONE; +rocuronium 10mg/ml inj IV ONE; +sod chloride 0.9% 10ml flush syringe IV ONE; +sodium bicarbonate (8.4%) 1 mEq/ml syringe ONE
[2022-11-06] MEDS ORDERED: diltiazem 5mg/ml 5ml inj. IV ONE (12:40)
[2022-11-06] MEDS ORDERED: diltiazem-NS 100mg/100ml 100 ML IV SCH (12:40)
[2022-11-06 12:43] LABS: BASOPHILS # (AUTO) 0.3 X10'3 (0-0.2); BASOPHILS % (AUTO) 1.4 % (0-1); EOSINOPHILS # (AUTO) 0.1 X10'3 (0-0.9); EOSINOPHILS % (AUTO) 0.4 % (0-6); HEMATOCRIT 28.9 % (42.0-52.0); HEMOGLOBIN 8.7 g/dl (14.0-17.9); LYMPHOCYTES # (AUTO) 2.2 X10'3 (1.1-4.8); MEAN CORPUSCULAR HEMOGLOBIN 21.1 PG (27.0-31.0); MEAN CORPUSCULAR HGB CONC 30.1 g/dL (33.0-36.5); MEAN CORPUSCULAR VOLUME 70.2 FL (78-98); MEAN PLATELET VOLUME 8.8 FL (7.4-10.4); MONOCYTES # (AUTO) 1.4 X10'3 (0-0.9); MONOCYTES % (AUTO) 6.8 % (2-12); NEUTROPHILS # (AUTO) 16.2 X10'3 (1.8-7.7); NEUTROPHILS % (AUTO) 80.4 % (42-75); PLATELET COUNT 357 X10'3 (140-440); RED BLOOD COUNT 4.12 X10'6 (4.70-6.10); RED CELL DISTRIBUTION WIDTH 21.2 % (11.5-14.5); WHITE BLOOD COUNT 20.2 X10'3 (4.5-11.0)
[2022-11-06 12:50] LABS: ALANINE AMINOTRANSFERASE 12 U/L (12-78); ALBUMIN 2.8 G/DL (3.4-5.0); ALBUMIN/GLOBULIN RATIO 0.7 (1.1-1.5); ALKALINE PHOSPHATASE 122 IU/L (46-116); ANION GAP 16 (8-16); ASPARTATE AMINO TRANSFERASE 17 U/L (10-37); BILIRUBIN,TOTAL 0.9 MG/DL (0.1-1.0); BLOOD UREA NITROGEN 17 MG/DL (7-18); CALCIUM 8.9 MG/DL (8.5-10.1); CHLORIDE 102 MMOL/L (99-107); CREATININE 1.42 MG/DL (0.60-1.10); GLUCOSE 178 MG/DL (70-104); POTASSIUM 3.3 MMOL/L (3.5-5.1); SODIUM 140 MMOL/L (135-145); TOTAL CARBON DIOXIDE 21.8 MMOL/L (24-32); eCRCL 41 ML/MIN; eGFR 48 ML/MIN
[2022-11-06] MEDS ORDERED: morphine 4 MG/ML inj SYRINge IV ONE (12:50)
[2022-11-06] MEDS ORDERED: ondansetron/PF 4mg/2ml inj IV ONE (12:50)
[2022-11-06] MEDS ORDERED: morphine 2 MG/ML inj. syringe IV ONE (12:50)
[2022-11-06 13:02] LABS: PRO BRAIN NATRIURETIC PEPTIDE 10277 PG/ML (0-450)
[2022-11-06] MEDS ORDERED: acetaminophen 325mg tablet PO PRN ×2 (13:35)
[2022-11-06 13:39] LABS: ANISOCYTOSIS 3+; MICROCYTOSIS 1+; PLATELET ESTIMATE NORMAL
[2022-11-06 13:40] LABS: ELLIPTOCYTES 1+; HYPOCHROMASIA 2+; POLYCHROMASIA FEW
[2022-11-06 13:41] LABS: LARGE PLATELETS FEW
[2022-11-06] MEDS: diltiazem 30mg tablet PO SCH ×2 (14:04→20:03)
--- NOTE | 2022-11-06 14:34 | NUR ---
Patient in room . I have received report from Rita CULLEN and had the opportunity to ask questions and awqaiting patients arrival
--- NOTE | 2022-11-06 14:41 | NUR ---
ED BED 5-TROPONIN INCREASED TO [phone] SENT TO [address] ARCE
--- NOTE | 2022-11-06 15:37 | NUR ---
patient SOB on 5L high flow NC. DR Ramires called order is in for RT eval and treat
--- NOTE | 2022-11-06 15:37 | NUR ---
Patient in room PCU 3013. I have received report from Rita CULLEN and had the opportunity to ask questions and assume patient care.
[2022-11-06] MEDS ORDERED: albuterol 2.5 MG/3 ML nebule ONE (15:40)
--- NOTE | 2022-11-06 17:17 | NUR ---
RT placed patient on 25L 100% FIO2. O2 SATS 93%. Patient tested for covid awaiting results. will closely monitor patient
[2022-11-06 17:28] LABS: COVID19 ANTIGEN BINAX NEGATIVE (NEGATIVE)
[2022-11-06] MEDS: albuterol 2.5 MG/3 ML nebule NEB SCH ×2 (19:41→23:17)
[2022-11-06] MEDS: furosemide 20 MG/2 ML vial IV SCH (20:03)
[2022-11-06] MEDS: docusate sod 100mg capsule PO SCH (20:03)
[2022-11-06] MEDS: methylPREDNISolone sod succ/PF 40mg inj. IV SCH (20:15)
[2022-11-06] MEDS ORDERED: magnesium 2GM in 50ml NS 50 ML IV PRN (21:30)
[2022-11-06] MEDS ORDERED: potassium Cl 40MEQ/1/2NS 520ml 520 ML IV PRN (21:30)
[2022-11-06] MEDS ORDERED: magnesium Cl slow-release 64mg tablet PO PRN (21:30)
[2022-11-06] MEDS ORDERED: potassium Cl 20 mEq SR tablet PO PRN ×2 (21:30)
[2022-11-06] MEDS ORDERED: magnesium 4gm in 100ml NS 100 ML IV PRN (21:30)
[2022-11-06] MEDS: HYDROcodone/acetaminophen 10/325mg tab PO PRN (22:00)
[2022-11-07] VITALS (26 sets, daily range): BP systolic 88–112; BP diastolic 44–67; PULSE 76–113; RESP 18–26; TEMP 96.9–98.2; O2SAT 90–98
[2022-11-07] MEDS: diltiazem 30mg tablet PO SCH (02:06)
[2022-11-07] MEDS: albuterol 2.5 MG/3 ML nebule NEB SCH ×6 (03:51→22:53)
[2022-11-07 06:08] LABS: BASOPHILS % (AUTO) 0.2 % (0-1); EOSINOPHILS % (AUTO) 0 % (0-6); HEMATOCRIT 26.8 % (42.0-52.0); HEMOGLOBIN 8.4 g/dl (14.0-17.9); LYMPHOCYTES # (AUTO) 1.1 X10'3 (1.1-4.8); LYMPHOCYTES % (AUTO) 10.3 % (21-51); MEAN CORPUSCULAR HEMOGLOBIN 21.9 PG (27.0-31.0); MEAN CORPUSCULAR HGB CONC 31.3 g/dL (33.0-36.5); MEAN CORPUSCULAR VOLUME 70.1 FL (78-98); MEAN PLATELET VOLUME 8.9 FL (7.4-10.4); MONOCYTES # (AUTO) 0.2 X10'3 (0-0.9); MONOCYTES % (AUTO) 1.8 % (2-12); NEUTROPHILS # (AUTO) 9.6 X10'3 (1.8-7.7); NEUTROPHILS % (AUTO) 87.7 % (42-75); PLATELET COUNT 304 X10'3 (140-440); RED BLOOD COUNT 3.82 X10'6 (4.70-6.10)
--- NOTE | 2022-11-07 06:19 | NUR ---
Problems reprioritized. Patient report given, questions answered & plan of care reviewed with MARYANA. Addendum: 11/07/22 at 0620 by Agustin Bullard RN Amended: Links added.
[2022-11-07 06:34] LABS: ALBUMIN 2.5 G/DL (3.4-5.0); ANION GAP 14 (8-16); BLOOD UREA NITROGEN 24 MG/DL (7-18); BUN/CREATININE RATIO 20.5 (10.0-20.0); CALCIUM 8.9 MG/DL (8.5-10.1); CHLORIDE 104 MMOL/L (99-107); CREATININE 1.17 MG/DL (0.60-1.10); GLUCOSE 171 MG/DL (70-104); MAGNESIUM 2.3 MG/DL (1.5-2.4); POTASSIUM 3.4 MMOL/L (3.5-5.1); SODIUM 142 MMOL/L (135-145); TOTAL CARBON DIOXIDE 23.9 MMOL/L (24-32); eCRCL 50 ML/MIN; eGFR 61 ML/MIN
--- NOTE | 2022-11-07 06:35 | NUR ---
Report received Quincy CULLEN.
[2022-11-07] MEDS ORDERED: albuterol 2.5 MG/3 ML nebule NEB PRN (06:45)
[2022-11-07] MEDS ORDERED: HYDROcodone/acetaminophen 10/325mg tab PO PRN (06:45)
[2022-11-07] MEDS ORDERED: nitroGLYCERIN 0.4mg SUBLingual tab SL PRN (06:45)
[2022-11-07] MEDS ORDERED: POTASSIUM BICARB 20meq eff tab 20 MEQ TABLET.EFF PO PRN ×2 (07:15)
[2022-11-07] MEDS: aspirin 81mg, enteric-coated 1 TAB TABLET.DR PO SCH (07:33)
[2022-11-07] MEDS: clopidogrel 75mg tablet PO SCH (07:33)
[2022-11-07] MEDS: pantoprazole 40mg Tablet.DR PO SCH (07:33)
[2022-11-07] MEDS: oxybutynin 5mg tablet PO SCH ×3 (07:33→21:27)
[2022-11-07] MEDS: docusate sod 100mg capsule PO SCH ×2 (07:33→19:54)
[2022-11-07] MEDS: lisinopril 2.5mg tablet PO SCH (07:34)
[2022-11-07] MEDS: metoprolol tartrate 25mg tablet PO SCH ×2 (07:35→19:53)
[2022-11-07] MEDS: EMPAGLIFLOZIN 10 MG TABLET PO SCH (07:35)
[2022-11-07] MEDS: methylPREDNISolone sod succ/PF 40mg inj. IV SCH ×2 (07:36→19:51)
[2022-11-07] MEDS: furosemide 20 MG/2 ML vial IV SCH ×2 (07:38→19:50)
[2022-11-07] MEDS: HYDROcodone/acetaminophen 10/325mg tab PO PRN ×2 (07:48→19:43)
[2022-11-07] MEDS: K and/or MAG REPLACEMENT MC SCH ×2 (07:49→20:00)
[2022-11-07] MEDS ORDERED: morphine 2 MG/ML inj. syringe IV PRN (08:55)
[2022-11-07] MEDS: morphine 2 MG/ML inj. syringe IV PRN (09:12)
--- NOTE | 2022-11-07 12:39 | NUR ---
blood pressure of 88/44. ALYSE Aldana notified
--- NOTE | 2022-11-07 12:50 | NUR ---
Dr. Wright informed that patients BP is low.
[2022-11-07] MEDS: heparin, porcine 5000 units/ml vial SQ SCH (19:54)
[2022-11-07] MEDS: atorvastatin 20mg tablet PO SCH (21:27)
[2022-11-08] VITALS (29 sets, daily range): BP systolic 92–102; BP diastolic 46–66; PULSE 52–119; RESP 16–30; TEMP 96.6–98.6; O2SAT 84–98
[2022-11-08] MEDS: albuterol 2.5 MG/3 ML nebule NEB PRN ×2 (01:48→09:35)
[2022-11-08] MEDS: albuterol 2.5 MG/3 ML nebule NEB SCH ×6 (04:32→23:00)
[2022-11-08] MEDS: HYDROcodone/acetaminophen 10/325mg tab PO PRN ×3 (04:32→22:08)
[2022-11-08] MEDS: morphine 2 MG/ML inj. syringe IV PRN ×2 (05:11→11:38)
--- NOTE | 2022-11-08 06:51 | NUR ---
Problems reprioritized. Patient report given, questions answered & plan of care reviewed with MANSOOR. Addendum: 11/08/22 at 0651 by Agustin Bullard RN Amended: Links added.
--- NOTE | 2022-11-08 06:59 | NUR ---
Patient in room PCU 3013. I have received report from ALYSE MONTANEZ and had the opportunity to ask questions and assume patient care.
[2022-11-08 07:01] LABS: ALBUMIN 2.5 G/DL (3.4-5.0); ANION GAP 16 (8-16); BLOOD UREA NITROGEN 46 MG/DL (7-18); BUN/CREATININE RATIO 27.7 (10.0-20.0); CALCIUM 8.9 MG/DL (8.5-10.1); CHLORIDE 102 MMOL/L (99-107); CREATININE 1.66 MG/DL (0.60-1.10); GLUCOSE 216 MG/DL (70-104); MAGNESIUM 2.5 MG/DL (1.5-2.4); POTASSIUM 4.3 MMOL/L (3.5-5.1); SODIUM 140 MMOL/L (135-145); TOTAL CARBON DIOXIDE 22.2 MMOL/L (24-32); eCRCL 35 ML/MIN; eGFR 40 ML/MIN
[2022-11-08 07:03] LABS: BASOPHILS % (AUTO) 0.1 % (0-1); EOSINOPHILS % (AUTO) 0 % (0-6); HEMATOCRIT 27.1 % (42.0-52.0); HEMOGLOBIN 8.1 g/dl (14.0-17.9); LYMPHOCYTES # (AUTO) 1.2 X10'3 (1.1-4.8); LYMPHOCYTES % (AUTO) 4.7 % (21-51); MEAN CORPUSCULAR HEMOGLOBIN 21.3 PG (27.0-31.0); MEAN CORPUSCULAR VOLUME 71.1 FL (78-98); MEAN PLATELET VOLUME 9.1 FL (7.4-10.4); MONOCYTES # (AUTO) 0.7 X10'3 (0-0.9); MONOCYTES % (AUTO) 2.5 % (2-12); NEUTROPHILS # (AUTO) 23.8 X10'3 (1.8-7.7); NEUTROPHILS % (AUTO) 92.7 % (42-75); PLATELET COUNT 364 X10'3 (140-440); RED BLOOD COUNT 3.81 X10'6 (4.70-6.10)
[2022-11-08 07:08] LABS: WHITE BLOOD COUNT 25.7 X10'3 (4.5-11.0)
--- NOTE | 2022-11-08 07:13 | NUR ---
Call to Dr. Ramires to notify him that patient's WBC critical 25.7 yesterday 11. No new orders received at this time. Per Dr. Ramires he will be deciding on antibiotics.
[2022-11-08 07:54] LABS: ANISOCYTOSIS 3+; PLATELET ESTIMATE NORMAL; TOTAL CELLS COUNTED 100
[2022-11-08 07:55] LABS: ELLIPTOCYTES FEW; HYPOCHROMASIA 2+; MICROCYTOSIS 1+; POLYCHROMASIA FEW; SCHISTOCYTES FEW
[2022-11-08] MEDS: K and/or MAG REPLACEMENT MC SCH ×2 (08:00→20:00)
[2022-11-08] MEDS ORDERED: morphine 2 MG/ML inj. syringe IV ONE (08:40)
[2022-11-08] MEDS: lisinopril 2.5mg tablet PO SCH (09:01)
[2022-11-08] MEDS: aspirin 81mg, enteric-coated 1 TAB TABLET.DR PO SCH (09:02)
[2022-11-08] MEDS: oxybutynin 5mg tablet PO SCH ×3 (09:02→20:45)
[2022-11-08] MEDS: clopidogrel 75mg tablet PO SCH (09:03)
[2022-11-08] MEDS: pantoprazole 40mg Tablet.DR PO SCH (09:03)
[2022-11-08] MEDS: EMPAGLIFLOZIN 10 MG TABLET PO SCH (09:03)
[2022-11-08] MEDS: metoprolol tartrate 25mg tablet PO SCH ×2 (09:03→20:46)
[2022-11-08] MEDS: furosemide 20 MG/2 ML vial IV SCH ×2 (09:04→20:47)
[2022-11-08] MEDS: methylPREDNISolone sod succ/PF 40mg inj. IV SCH ×2 (09:04→20:50)
[2022-11-08] MEDS: docusate sod 100mg capsule PO SCH ×2 (09:05→20:00)
[2022-11-08] MEDS: heparin, porcine 5000 units/ml vial SQ SCH ×2 (09:05→20:48)
--- NOTE | 2022-11-08 12:30 | NUR ---
Notified by director television news patient in right bundle branch block and hr 80bpm. Patient denies any symptoms but states is "tired" BP 92/52, hr 82. Call to Dr. Ramires and left message to call back.
--- NOTE | 2022-11-08 12:39 | NUR ---
PAGER ID: [phone] MESSAGE: [id number]- Lenny Browne- pt right bundle branch block hr 80. denies any symptoms. BP 92/52. Dr. Smiley states "possible afib with something else". do you want to look at strip?- Niko [phone]
--- NOTE | 2022-11-08 13:25 | NUR ---
received call back from Dr. Ramires. No new orders and will come see patient later.
[2022-11-08] MEDS: levoFLOXACIN-Levaquin 250mg/D5 50 ML IV SCH (18:01)
[2022-11-08] MEDS ORDERED: VANCOMYCIN 750MG IV in NS 250 ML IV SCH (18:01)
--- NOTE | 2022-11-08 18:22 | NUR ---
Patient had son bring in hamburger and fries. Educated patient he is on a 2gm Na restricted diet and should not be eating the hamburgers and fries. Educated patient and patient's son reason for being on 2gm Na restricted diet. Patient non compliant and started eating the gambian fries. Patient stated, "well, my legs aren't swollen anymore they look so much better." Patient educated he is on lasix to rid of excess fluid that Na retains. Patient son spoke to patient and patient agreed to compromised with son to eat hamburger and not the fries.
--- NOTE | 2022-11-08 18:39 | NUR ---
Problems reprioritized. Patient report given, questions answered & plan of care reviewed with David Abernathy.
--- NOTE | 2022-11-08 18:40 | NUR ---
Patient in room PCU 3013. I have received report from ALYSE Pope and had the opportunity to ask questions and assume patient care. Patient sitting up in bed, vistor at bedside. Still on high flow O2, report SOB and generalized pain, I will continue to monitor.
[2022-11-08] MEDS: VANCOMYCIN 750MG IV in NS 250 ML IV SCH (19:14)
[2022-11-08] MEDS: budesonide 0.5mg/2ml UD nebule IH SCH (19:17)
[2022-11-08] MEDS ORDERED: vancomycin/NS 1 GM ADD-VANTAGE 250 ML IV SCH (20:00)
[2022-11-08] MEDS: atorvastatin 20mg tablet PO SCH (20:46)
[2022-11-09] VITALS (25 sets, daily range): BP systolic 96–115; BP diastolic 56–77; PULSE 60–89; RESP 20–24; TEMP 96–97.9; O2SAT 80–96
[2022-11-09] MEDS: albuterol 2.5 MG/3 ML nebule NEB SCH ×6 (03:00→22:30)
[2022-11-09] MEDS: morphine 2 MG/ML inj. syringe IV PRN ×3 (03:17→20:16)
[2022-11-09 06:12] LABS: BASOPHILS % (AUTO) 0.2 % (0-1); EOSINOPHILS % (AUTO) 0 % (0-6); HEMATOCRIT 25.8 % (42.0-52.0); HEMOGLOBIN 7.9 g/dl (14.0-17.9); LYMPHOCYTES # (AUTO) 1.1 X10'3 (1.1-4.8); LYMPHOCYTES % (AUTO) 4.9 % (21-51); MEAN CORPUSCULAR HEMOGLOBIN 21.4 PG (27.0-31.0); MEAN CORPUSCULAR HGB CONC 30.5 g/dL (33.0-36.5); MEAN CORPUSCULAR VOLUME 70.3 FL (78-98); MEAN PLATELET VOLUME 9.2 FL (7.4-10.4); MONOCYTES # (AUTO) 0.7 X10'3 (0-0.9); NEUTROPHILS # (AUTO) 20.8 X10'3 (1.8-7.7); NEUTROPHILS % (AUTO) 91.9 % (42-75); PLATELET COUNT 360 X10'3 (140-440); RED BLOOD COUNT 3.68 X10'6 (4.70-6.10); RED CELL DISTRIBUTION WIDTH 21.8 % (11.5-14.5); WHITE BLOOD COUNT 22.6 X10'3 (4.5-11.0)
[2022-11-09 06:16] LABS: ALBUMIN 2.8 G/DL (3.4-5.0); ANION GAP 13 (8-16); BLOOD UREA NITROGEN 64 MG/DL (7-18); BUN/CREATININE RATIO 40.3 (10.0-20.0); CALCIUM 9.1 MG/DL (8.5-10.1); CHLORIDE 103 MMOL/L (99-107); CREATININE 1.59 MG/DL (0.60-1.10); GLUCOSE 166 MG/DL (70-104); MAGNESIUM 2.6 MG/DL (1.5-2.4); POTASSIUM 4.6 MMOL/L (3.5-5.1); SODIUM 139 MMOL/L (135-145); TOTAL CARBON DIOXIDE 22.9 MMOL/L (24-32); eCRCL 37 ML/MIN; eGFR 43 ML/MIN
[2022-11-09] MEDS: budesonide 0.5mg/2ml UD nebule IH SCH ×2 (06:54→19:33)
[2022-11-09 07:05] LABS: ANISOCYTOSIS 3+; ELLIPTOCYTES 1+; HYPOCHROMASIA 2+; LARGE PLATELETS FEW; MICROCYTOSIS 1+; PLATELET ESTIMATE NORMAL; POLYCHROMASIA FEW; SCHISTOCYTES FEW
[2022-11-09] MEDS: HYDROcodone/acetaminophen 10/325mg tab PO PRN ×2 (08:00→16:06)
[2022-11-09] MEDS: K and/or MAG REPLACEMENT MC SCH ×2 (08:00→20:25)
[2022-11-09] MEDS: lisinopril 2.5mg tablet PO SCH (08:00)
[2022-11-09] MEDS: furosemide 20 MG/2 ML vial IV SCH ×2 (08:55→20:15)
[2022-11-09] MEDS: methylPREDNISolone sod succ/PF 40mg inj. IV SCH ×2 (08:55→20:13)
[2022-11-09 10:04] LABS: ALANINE AMINOTRANSFERASE 18 U/L (12-78); ALBUMIN/GLOBULIN RATIO 0.7 (1.1-1.5); ALKALINE PHOSPHATASE 93 IU/L (46-116); ASPARTATE AMINO TRANSFERASE 18 U/L (10-37); BILIRUBIN,DIRECT 0.1 MG/DL (0-0.3); BILIRUBIN,TOTAL 0.4 MG/DL (0.1-1.0); TOTAL PROTEIN 6.9 G/DL (6.4-8.2)
[2022-11-09] MEDS: metoprolol tartrate 25mg tablet PO SCH ×2 (11:12→20:15)
[2022-11-09] MEDS: EMPAGLIFLOZIN 10 MG TABLET PO SCH (11:13)
[2022-11-09] MEDS: clopidogrel 75mg tablet PO SCH (11:14)
[2022-11-09] MEDS: oxybutynin 5mg tablet PO SCH ×3 (11:14→20:14)
[2022-11-09] MEDS: aspirin 81mg, enteric-coated 1 TAB TABLET.DR PO SCH (11:14)
[2022-11-09] MEDS: docusate sod 100mg capsule PO SCH ×2 (11:14→20:14)
[2022-11-09] MEDS: pantoprazole 40mg Tablet.DR PO SCH (11:15)
[2022-11-09] MEDS: heparin, porcine 5000 units/ml vial SQ SCH ×2 (11:16→20:14)
[2022-11-09] MEDS: levoFLOXACIN-Levaquin 250mg/D5 50 ML IV SCH (17:01)
--- NOTE | 2022-11-09 18:32 | NUR ---
Problems reprioritized. Patient report given, questions answered & plan of care reviewed with Prudence.
--- NOTE | 2022-11-09 18:32 | NUR ---
Patient in room PCU 3013. I have received report from KAMILA TOURE and had the opportunity to ask questions and assume patient care.
[2022-11-09] MEDS: VANCOMYCIN 750MG IV in NS 250 ML IV SCH (20:10)
[2022-11-09] MEDS: atorvastatin 20mg tablet PO SCH (20:14)
[2022-11-10] VITALS (24 sets, daily range): BP systolic 108–124; BP diastolic 63–95; PULSE 68–102; RESP 17–26; TEMP 97.6–98; O2SAT 91–96
[2022-11-10] MEDS: morphine 2 MG/ML inj. syringe IV PRN ×3 (02:07→18:59)
[2022-11-10] MEDS: albuterol 2.5 MG/3 ML nebule NEB SCH ×6 (02:32→23:16)
[2022-11-10] MEDS: HYDROcodone/acetaminophen 10/325mg tab PO PRN ×3 (04:51→23:52)
--- NOTE | 2022-11-10 06:33 | NUR ---
Problems reprioritized. Patient report given, questions answered & plan of care reviewed with NAOMI CULLEN.
[2022-11-10 07:41] LABS: BASOPHILS % (AUTO) 0.1 % (0-1); EOSINOPHILS % (AUTO) 0 % (0-6); HEMATOCRIT 28.1 % (42.0-52.0); HEMOGLOBIN 8.5 g/dl (14.0-17.9); LYMPHOCYTES # (AUTO) 1.2 X10'3 (1.1-4.8); LYMPHOCYTES % (AUTO) 5.7 % (21-51); MEAN CORPUSCULAR HEMOGLOBIN 21.3 PG (27.0-31.0); MEAN CORPUSCULAR HGB CONC 30.4 g/dL (33.0-36.5); MEAN CORPUSCULAR VOLUME 69.9 FL (78-98); MEAN PLATELET VOLUME 9.2 FL (7.4-10.4); MONOCYTES # (AUTO) 1.1 X10'3 (0-0.9); MONOCYTES % (AUTO) 5.6 % (2-12); NEUTROPHILS # (AUTO) 18.2 X10'3 (1.8-7.7); NEUTROPHILS % (AUTO) 88.6 % (42-75); PLATELET COUNT 384 X10'3 (140-440); RED BLOOD COUNT 4.01 X10'6 (4.70-6.10); RED CELL DISTRIBUTION WIDTH 21.3 % (11.5-14.5); WHITE BLOOD COUNT 20.5 X10'3 (4.5-11.0)
[2022-11-10] MEDS: K and/or MAG REPLACEMENT MC SCH ×2 (08:00→20:00)
[2022-11-10 08:02] LABS: ALBUMIN 2.9 G/DL (3.4-5.0); ANION GAP 14 (8-16); BLOOD UREA NITROGEN 66 MG/DL (7-18); BUN/CREATININE RATIO 39.5 (10.0-20.0); CHLORIDE 103 MMOL/L (99-107); CREATININE 1.67 MG/DL (0.60-1.10); GLUCOSE 174 MG/DL (70-104); MAGNESIUM 2.6 MG/DL (1.5-2.4); POTASSIUM 4.9 MMOL/L (3.5-5.1); SODIUM 141 MMOL/L (135-145); TOTAL CARBON DIOXIDE 23.9 MMOL/L (24-32); eCRCL 35 ML/MIN; eGFR 40 ML/MIN
[2022-11-10 08:41] LABS: ANISOCYTOSIS 3+; ELLIPTOCYTES 1+; HYPOCHROMASIA 2+; MICROCYTOSIS 2+; PLATELET ESTIMATE NORMAL
[2022-11-10] MEDS: pantoprazole 40mg Tablet.DR PO SCH (09:25)
[2022-11-10] MEDS: EMPAGLIFLOZIN 10 MG TABLET PO SCH (09:25)
[2022-11-10] MEDS: clopidogrel 75mg tablet PO SCH (09:25)
[2022-11-10] MEDS: lisinopril 2.5mg tablet PO SCH (09:25)
[2022-11-10] MEDS: docusate sod 100mg capsule PO SCH ×2 (09:25→20:18)
[2022-11-10] MEDS: furosemide 20 MG/2 ML vial IV SCH ×2 (09:26→20:20)
[2022-11-10] MEDS: heparin, porcine 5000 units/ml vial SQ SCH ×2 (09:26→20:20)
[2022-11-10] MEDS: methylPREDNISolone sod succ/PF 40mg inj. IV SCH ×2 (09:26→20:21)
[2022-11-10] MEDS: metoprolol tartrate 25mg tablet PO SCH ×2 (09:26→20:19)
[2022-11-10] MEDS: oxybutynin 5mg tablet PO SCH ×3 (09:27→22:38)
--- NOTE | 2022-11-10 09:41 | NUR ---
Initial: Pt presented with generalized weakness and admit for acute hypoxic respiratory failure d/t COPD exacerbation, decompensated CHF with pulmonary edema, A.fib with RVR, microcytic anemia, and hypokalemia. Pt on a 2 g Na restricted diet and eating well, documented with average 75% PO intake meeting 93% estimated energy needs and 83% estimated protein needs. Noted pt documented with 100% PO intake of milk only at most recent meal however likely error as pt documented to have consumed 45 g CHO. Unfortunately poor documentation of PO intake with several meals missing documentation (only documented with 5 meals out of presumably ~10 meals since admit) d/t documented PO intake intervention entered as PRN in EMR. RD adjusted EMR to be routine. LBM 8/2 x 2 per I&O. No nutrition intervention implemented at this time. Will continue to follow and make recommendations as appropriate pending further trends in PO intake. Recommendations: 1) Continue 2 g Na restricted diet 2) Monitor need for ONS/additional protein 3) Consider routine Fe and Vitamin C given low MCV 4) Routine bowel care 5) Weekly scaled weights Addendum: 11/10/22 at [address] Amended: Links added.
[2022-11-10] MEDS: budesonide 0.5mg/2ml UD nebule IH SCH ×2 (10:34→23:16)
[2022-11-10] MEDS: levoFLOXACIN-Levaquin 250mg/D5 50 ML IV SCH (17:03)
--- NOTE | 2022-11-10 18:25 | NUR ---
Patient in room PCU 3013. I have received report from ALYSE SALGADO and had the opportunity to ask questions and assume patient care.
[2022-11-10] MEDS: VANCOMYCIN 750MG IV in NS 250 ML IV SCH (20:11)
[2022-11-10] MEDS: atorvastatin 20mg tablet PO SCH (22:39)
[2022-11-11] VITALS (21 sets, daily range): BP systolic 101–119; BP diastolic 55–72; PULSE 55–93; RESP 17–30; TEMP 97.2–98.2; O2SAT 84–100
[2022-11-11] MEDS: ondansetron/PF 4mg/2ml inj IV PRN ×3 (01:54→23:31)
[2022-11-11] MEDS: albuterol 2.5 MG/3 ML nebule NEB SCH ×6 (03:17→23:12)
[2022-11-11] MEDS: mag hydrox/Alum hydrox/simeth 30ml oral suspension PO PRN ×2 (05:24→21:52)
--- NOTE | 2022-11-11 06:11 | NUR ---
Problems reprioritized. Patient report given, questions answered & plan of care reviewed with ALYSE SALGADO.
[2022-11-11 07:10] LABS: BASOPHILS % (AUTO) 0 % (0-1); EOSINOPHILS % (AUTO) 0 % (0-6); HEMOGLOBIN 8.2 g/dl (14.0-17.9); LYMPHOCYTES % (AUTO) 4.8 % (21-51); MEAN CORPUSCULAR HEMOGLOBIN 21.2 PG (27.0-31.0); MEAN CORPUSCULAR HGB CONC 30.3 g/dL (33.0-36.5); MEAN CORPUSCULAR VOLUME 69.9 FL (78-98); MONOCYTES # (AUTO) 1.1 X10'3 (0-0.9); MONOCYTES % (AUTO) 5.5 % (2-12); NEUTROPHILS # (AUTO) 18.7 X10'3 (1.8-7.7); NEUTROPHILS % (AUTO) 89.7 % (42-75); PLATELET COUNT 349 X10'3 (140-440); RED BLOOD COUNT 3.86 X10'6 (4.70-6.10); RED CELL DISTRIBUTION WIDTH 20.7 % (11.5-14.5); WHITE BLOOD COUNT 20.9 X10'3 (4.5-11.0)
[2022-11-11 07:56] LABS: ANISOCYTOSIS 3+; HYPOCHROMASIA 2+; MICROCYTOSIS 2+; PLATELET ESTIMATE NORMAL; TOTAL CELLS COUNTED 100
[2022-11-11 07:57] LABS: ELLIPTOCYTES 1+; POLYCHROMASIA 1+; TARGET CELLS FEW
[2022-11-11 07:59] LABS: ALBUMIN 2.7 G/DL (3.4-5.0); ANION GAP 10 (8-16); BLOOD UREA NITROGEN 58 MG/DL (7-18); CALCIUM 8.6 MG/DL (8.5-10.1); CHLORIDE 102 MMOL/L (99-107); CREATININE 1.45 MG/DL (0.60-1.10); GLUCOSE 198 MG/DL (70-104); POTASSIUM 4.7 MMOL/L (3.5-5.1); SODIUM 138 MMOL/L (135-145); TOTAL CARBON DIOXIDE 25.7 MMOL/L (24-32); eCRCL 41 ML/MIN; eGFR 47 ML/MIN
[2022-11-11] MEDS: K and/or MAG REPLACEMENT MC SCH ×2 (08:00→20:00)
[2022-11-11] MEDS: furosemide 20 MG/2 ML vial IV SCH ×2 (08:17→21:38)
[2022-11-11] MEDS: docusate sod 100mg capsule PO SCH (08:18)
[2022-11-11] MEDS: clopidogrel 75mg tablet PO SCH (08:18)
[2022-11-11] MEDS: heparin, porcine 5000 units/ml vial SQ SCH ×2 (08:18→21:41)
[2022-11-11] MEDS: pantoprazole 40mg Tablet.DR PO SCH (08:19)
[2022-11-11] MEDS: oxybutynin 5mg tablet PO SCH ×2 (08:19→21:40)
[2022-11-11] MEDS: EMPAGLIFLOZIN 10 MG TABLET PO SCH (08:19)
[2022-11-11] MEDS: methylPREDNISolone sod succ/PF 40mg inj. IV SCH ×2 (08:20→21:39)
[2022-11-11] MEDS: lisinopril 2.5mg tablet PO SCH (08:23)
[2022-11-11] MEDS: metoprolol tartrate 25mg tablet PO SCH ×2 (08:23→21:43)
[2022-11-11] MEDS: budesonide 0.5mg/2ml UD nebule IH SCH ×2 (08:28→19:28)
[2022-11-11] MEDS: magnesium hydroxide 30ml (MOM) UD suspension PO PRN (10:40)
[2022-11-11] MEDS: morphine 2 MG/ML inj. syringe IV PRN (10:42)
[2022-11-11] MEDS: HYDROcodone/acetaminophen 10/325mg tab PO PRN (13:00)
[2022-11-11 15:59] LABS: ABG HCO3 23.8 mmol/L (22.0-26.0); ABG OXYGEN SATURATION 88.3 % (94-97); ABG PO2 (T) 59.7 mmHg (75.0-100.0); ALLEN'S TEST POSITIVE; FCOHb 0.4 % (0.0-3.9); FHHb 11.6 % (0.0-5.0); FLOW 28 L/min; FMetHb 0.2 % (0.0-1.5); FO2Hb 87.8 % (94-97); MODE HIGH FLOW; TOTAL HEMOGLOBIN 9.4 G/dl (14.0-17.9)
[2022-11-11] MEDS: levoFLOXACIN-Levaquin 250mg/D5 50 ML IV SCH (17:35)
--- NOTE | 2022-11-11 18:10 | NUR ---
Patient in room PCU 3013. I have received report from ALYSE SALGADO and had the opportunity to ask questions and assume patient care.
[2022-11-11] MEDS ORDERED: VANCOMYCIN LEVEL IV ONE (18:30)
[2022-11-11] MEDS: atorvastatin 20mg tablet PO SCH (21:40)
[2022-11-12] VITALS (22 sets, daily range): BP systolic 106–115; BP diastolic 60–64; PULSE 68–84; RESP 17–24; TEMP 97.6–98.8; O2SAT 90–96
[2022-11-12] MEDS: morphine 2 MG/ML inj. syringe IV PRN ×3 (00:59→22:18)
[2022-11-12] MEDS: albuterol 2.5 MG/3 ML nebule NEB SCH ×6 (02:58→22:56)
--- NOTE | 2022-11-12 06:15 | NUR ---
Problems reprioritized. Patient report given, questions answered & plan of care reviewed with ALYSE SALGADO.
[2022-11-12] MEDS: budesonide 0.5mg/2ml UD nebule IH SCH ×2 (07:43→19:37)
[2022-11-12] MEDS: K and/or MAG REPLACEMENT MC SCH ×2 (08:00→20:00)
[2022-11-12] MEDS: oxybutynin 5mg tablet PO SCH ×2 (10:11→19:28)
[2022-11-12] MEDS: clopidogrel 75mg tablet PO SCH (10:11)
[2022-11-12] MEDS: metoprolol tartrate 25mg tablet PO SCH ×2 (10:12→19:28)
[2022-11-12] MEDS: heparin, porcine 5000 units/ml vial SQ SCH ×2 (10:12→19:26)
[2022-11-12] MEDS: methylPREDNISolone sod succ/PF 40mg inj. IV SCH ×2 (10:12→19:25)
[2022-11-12] MEDS: furosemide 20 MG/2 ML vial IV SCH ×2 (10:12→19:26)
[2022-11-12] MEDS: lisinopril 2.5mg tablet PO SCH (10:12)
[2022-11-12] MEDS: EMPAGLIFLOZIN 10 MG TABLET PO SCH (10:12)
[2022-11-12] MEDS: pantoprazole 40mg Tablet.DR PO SCH (10:12)
[2022-11-12 11:00] LABS: BASOPHILS % (AUTO) 0.1 % (0-1); EOSINOPHILS % (AUTO) 0 % (0-6); LYMPHOCYTES # (AUTO) 1.1 X10'3 (1.1-4.8); LYMPHOCYTES % (AUTO) 5.9 % (21-51); MEAN CORPUSCULAR HEMOGLOBIN 20.8 PG (27.0-31.0); MEAN CORPUSCULAR HGB CONC 29.6 g/dL (33.0-36.5); MEAN CORPUSCULAR VOLUME 70.1 FL (78-98); MEAN PLATELET VOLUME 9.6 FL (7.4-10.4); MONOCYTES # (AUTO) 1.1 X10'3 (0-0.9); NEUTROPHILS # (AUTO) 16.6 X10'3 (1.8-7.7); PLATELET COUNT 340 X10'3 (140-440); RED BLOOD COUNT 3.85 X10'6 (4.70-6.10); RED CELL DISTRIBUTION WIDTH 20.3 % (11.5-14.5); WHITE BLOOD COUNT 18.9 X10'3 (4.5-11.0)
[2022-11-12 11:05] LABS: ALBUMIN 2.5 G/DL (3.4-5.0); ANION GAP 10 (8-16); BLOOD UREA NITROGEN 51 MG/DL (7-18); BUN/CREATININE RATIO 36.2 (10.0-20.0); CALCIUM 8.5 MG/DL (8.5-10.1); CHLORIDE 103 MMOL/L (99-107); CREATININE 1.41 MG/DL (0.60-1.10); GLUCOSE 206 MG/DL (70-104); POTASSIUM 5.2 MMOL/L (3.5-5.1); SODIUM 138 MMOL/L (135-145); TOTAL CARBON DIOXIDE 24.8 MMOL/L (24-32); eCRCL 42 ML/MIN; eGFR 49 ML/MIN
[2022-11-12 11:17] LABS: ANISOCYTOSIS 3+; ELLIPTOCYTES FEW; MICROCYTOSIS 1+; PLATELET ESTIMATE NORMAL; POIKILOCYTOSIS FEW; POLYCHROMASIA FEW
[2022-11-12] MEDS ORDERED: iohexol 350MG/ML 100ml bottle IV ONE (17:00)
[2022-11-12] MEDS: levoFLOXACIN-Levaquin 250mg/D5 50 ML IV SCH (17:41)
[2022-11-12] MEDS: HYDROcodone/acetaminophen 10/325mg tab PO PRN (19:27)
[2022-11-12] MEDS: atorvastatin 20mg tablet PO SCH (21:00)
[2022-11-13] VITALS (26 sets, daily range): BP systolic 93–115; BP diastolic 50–68; PULSE 54–88; RESP 14–21; TEMP 97.2–98.3; O2SAT 90–98
[2022-11-13] MEDS: morphine 2 MG/ML inj. syringe IV PRN (02:23)
[2022-11-13] MEDS: albuterol 2.5 MG/3 ML nebule NEB SCH ×6 (03:25→23:13)
[2022-11-13 06:04] LABS: BASOPHILS % (AUTO) 0.2 % (0-1); EOSINOPHILS % (AUTO) 0 % (0-6); HEMATOCRIT 25.5 % (42.0-52.0); HEMOGLOBIN 7.7 g/dl (14.0-17.9); LYMPHOCYTES # (AUTO) 0.8 X10'3 (1.1-4.8); MEAN CORPUSCULAR HEMOGLOBIN 20.9 PG (27.0-31.0); MEAN CORPUSCULAR HGB CONC 30.2 g/dL (33.0-36.5); MEAN CORPUSCULAR VOLUME 69.2 FL (78-98); MEAN PLATELET VOLUME 8.8 FL (7.4-10.4); MONOCYTES # (AUTO) 0.4 X10'3 (0-0.9); NEUTROPHILS # (AUTO) 11.7 X10'3 (1.8-7.7); NEUTROPHILS % (AUTO) 90.8 % (42-75); PLATELET COUNT 313 X10'3 (140-440); RED BLOOD COUNT 3.68 X10'6 (4.70-6.10); RED CELL DISTRIBUTION WIDTH 20.2 % (11.5-14.5); WHITE BLOOD COUNT 12.8 X10'3 (4.5-11.0)
--- NOTE | 2022-11-13 06:20 | NUR ---
Patient in room PCU 3013. I have received report from Yin CULLEN and had the opportunity to ask questions and assume patient care.
[2022-11-13 06:21] LABS: ALBUMIN 2.4 G/DL (3.4-5.0); BLOOD UREA NITROGEN 45 MG/DL (7-18); BUN/CREATININE RATIO 36.6 (10.0-20.0); CALCIUM 8.7 MG/DL (8.5-10.1); CHLORIDE 103 MMOL/L (99-107); CREATININE 1.23 MG/DL (0.60-1.10); GLUCOSE 213 MG/DL (70-104); POTASSIUM 5.1 MMOL/L (3.5-5.1); SODIUM 138 MMOL/L (135-145); eCRCL 48 ML/MIN; eGFR 57 ML/MIN
[2022-11-13 06:35] LABS: ANION GAP 7 (8-16); TOTAL CARBON DIOXIDE 27.7 MMOL/L (24-32)
[2022-11-13] MEDS: budesonide 0.5mg/2ml UD nebule IH SCH ×2 (07:04→19:38)
[2022-11-13 07:50] LABS: HYPOCHROMASIA 2+; MICROCYTOSIS 2+; NUCLEATED RED BLOOD CELLS 1 /100WBC (0-0); PLATELET ESTIMATE NORMAL; TOTAL CELLS COUNTED 100
[2022-11-13 07:51] LABS: ANISOCYTOSIS 3+; HYPERSEGMENTED NEUTROPHILS FEW; POLYCHROMASIA 1+
[2022-11-13 07:52] LABS: ELLIPTOCYTES 1+; LARGE PLATELETS FEW; STOMATOCYTES 1+
[2022-11-13] MEDS: furosemide 20 MG/2 ML vial IV SCH (07:58)
[2022-11-13] MEDS: methylPREDNISolone sod succ/PF 40mg inj. IV SCH ×3 (07:58→20:11)
[2022-11-13] MEDS: K and/or MAG REPLACEMENT MC SCH ×2 (08:00→20:00)
[2022-11-13] MEDS: pantoprazole 40mg Tablet.DR PO SCH (08:50)
[2022-11-13] MEDS: heparin, porcine 5000 units/ml vial SQ SCH ×2 (08:50→20:12)
[2022-11-13] MEDS: lisinopril 2.5mg tablet PO SCH (08:51)
[2022-11-13] MEDS: EMPAGLIFLOZIN 10 MG TABLET PO SCH (08:52)
[2022-11-13] MEDS: oxybutynin 5mg tablet PO SCH ×3 (08:52→20:11)
[2022-11-13] MEDS: clopidogrel 75mg tablet PO SCH (08:52)
[2022-11-13] MEDS: metoprolol tartrate 25mg tablet PO SCH ×2 (08:54→20:10)
--- NOTE | 2022-11-13 10:33 | NUR ---
Dr. Ortega gave order for 20 mg IV Lasix now and change 20 mg to 40 mg BID.
[2022-11-13] MEDS ORDERED: furosemide 20 MG/2 ML vial IV ONE (10:35)
[2022-11-13] MEDS: HYDROcodone/acetaminophen 10/325mg tab PO PRN ×2 (12:09→20:12)
[2022-11-13] MEDS: levoFLOXACIN-Levaquin 250mg/D5 50 ML IV SCH (18:06)
--- NOTE | 2022-11-13 18:29 | NUR ---
Problems reprioritized. Patient report given, questions answered & plan of care reviewed with Quincy CULLEN.
[2022-11-13] MEDS: furosemide 40mg/4ml inj IV SCH ×2 (20:00→20:10)
[2022-11-13] MEDS: mag hydrox/Alum hydrox/simeth 30ml oral suspension PO PRN (22:18)
[2022-11-13] MEDS: atorvastatin 20mg tablet PO SCH (22:19)
[2022-11-14] VITALS (24 sets, daily range): BP systolic 96–107; BP diastolic 49–66; PULSE 64–111; RESP 14–24; TEMP 97.7–98.6; O2SAT 90–98
[2022-11-14] MEDS: albuterol 2.5 MG/3 ML nebule NEB SCH ×6 (02:58→23:36)
--- NOTE | 2022-11-14 06:28 | NUR ---
Problems reprioritized. Patient report given, questions answered & plan of care reviewed with JAZMINE. Addendum: 11/14/22 at 0628 by Agustin Bullard RN Amended: Links added.
[2022-11-14] MEDS: budesonide 0.5mg/2ml UD nebule IH SCH ×2 (07:15→19:28)
[2022-11-14 07:20] LABS: ALBUMIN 2.5 G/DL (3.4-5.0); ANION GAP 8 (8-16); BLOOD UREA NITROGEN 39 MG/DL (7-18); BUN/CREATININE RATIO 33.1 (10.0-20.0); CALCIUM 8.9 MG/DL (8.5-10.1); CHLORIDE 102 MMOL/L (99-107); CREATININE 1.18 MG/DL (0.60-1.10); GLUCOSE 155 MG/DL (70-104); POTASSIUM 4.3 MMOL/L (3.5-5.1); SODIUM 138 MMOL/L (135-145); TOTAL CARBON DIOXIDE 28.2 MMOL/L (24-32); eCRCL 50 ML/MIN; eGFR 60 ML/MIN
[2022-11-14 07:24] LABS: BASOPHILS % (AUTO) 0.1 % (0-1); EOSINOPHILS % (AUTO) 0 % (0-6); HEMATOCRIT 27.2 % (42.0-52.0); HEMOGLOBIN 8.1 g/dl (14.0-17.9); LYMPHOCYTES # (AUTO) 2.7 X10'3 (1.1-4.8); MEAN CORPUSCULAR HEMOGLOBIN 20.8 PG (27.0-31.0); MEAN CORPUSCULAR HGB CONC 29.9 g/dL (33.0-36.5); MEAN CORPUSCULAR VOLUME 69.5 FL (78-98); MEAN PLATELET VOLUME 9.3 FL (7.4-10.4); MONOCYTES # (AUTO) 1.4 X10'3 (0-0.9); MONOCYTES % (AUTO) 6.6 % (2-12); NEUTROPHILS # (AUTO) 16.9 X10'3 (1.8-7.7); NEUTROPHILS % (AUTO) 80.3 % (42-75); PLATELET COUNT 375 X10'3 (140-440); RED BLOOD COUNT 3.91 X10'6 (4.70-6.10); RED CELL DISTRIBUTION WIDTH 19.9 % (11.5-14.5); WHITE BLOOD COUNT 21.1 X10'3 (4.5-11.0)
[2022-11-14] MEDS: K and/or MAG REPLACEMENT MC SCH ×2 (08:00→20:00)
[2022-11-14] MEDS: metoprolol tartrate 25mg tablet PO SCH ×2 (08:12→19:48)
[2022-11-14] MEDS: EMPAGLIFLOZIN 10 MG TABLET PO SCH (08:12)
[2022-11-14] MEDS: oxybutynin 5mg tablet PO SCH ×2 (08:12→19:59)
[2022-11-14] MEDS: clopidogrel 75mg tablet PO SCH (08:12)
[2022-11-14] MEDS: pantoprazole 40mg Tablet.DR PO SCH (08:12)
[2022-11-14] MEDS: lisinopril 2.5mg tablet PO SCH (08:13)
[2022-11-14] MEDS: heparin, porcine 5000 units/ml vial SQ SCH ×2 (08:13→20:00)
[2022-11-14] MEDS: magnesium hydroxide 30ml (MOM) UD suspension PO PRN ×2 (08:14→20:08)
[2022-11-14] MEDS: mag hydrox/Alum hydrox/simeth 30ml oral suspension PO PRN ×2 (08:23→20:08)
[2022-11-14] MEDS: HYDROcodone/acetaminophen 10/325mg tab PO PRN ×2 (08:25→16:56)
[2022-11-14 08:42] LABS: NUCLEATED RED BLOOD CELLS 1 /100WBC (0-0); PLATELET ESTIMATE NORMAL; TOTAL CELLS COUNTED 100
[2022-11-14 08:43] LABS: ANISOCYTOSIS 2+; HYPOCHROMASIA 2+; MICROCYTOSIS 2+; POLYCHROMASIA 1+; STOMATOCYTES 2+
[2022-11-14] MEDS: furosemide 40mg/4ml inj IV SCH ×2 (09:49→19:57)
[2022-11-14] MEDS: methylPREDNISolone sod succ/PF 40mg inj. IV SCH ×2 (09:51→19:57)
--- NOTE | 2022-11-14 12:23 | NUR ---
AGREE WITH SIDE GLUER AM ASSESSMENT
--- NOTE | 2022-11-14 15:04 | NUR ---
F/u 11/14: Pt continues on a 2g sodium restriction diet with average PO intake 62% x 13 meals. Average PO intake met about 77% of estimated kcals needs and 69% of protein needs however appears to be improving with 91% PO intake of last four meals. Pt seen at bedside during time of visit. Noted half drank pepsi at bedside, pt states drinking the pepsi for the past two days and states his son has been bringing him outside food for dinners. Pt states he's getting a bit tired of the bland food here however still tries to eat it plus the food his son brings in therefore pt likely meeting estimated needs with the hospital food plus outside food and drinks. LBM on 11/12 receiving PRN bowel care per EMR. Will continue to monitor and make nutrition interventions as needed. Recommendations: 1) Continue 2 g Na restricted diet per physician 2) Consider routine Fe and Vitamin C given low MCV 3) Routine bowel care 4) Weekly scaled weights Addendum: 11/14/22 at [address] Amended: Links added.
[2022-11-14] MEDS: levoFLOXACIN-Levaquin 250mg/D5 50 ML IV SCH (16:59)
--- NOTE | 2022-11-14 18:04 | NUR ---
Problems reprioritized. Patient report given, questions answered & plan of care reviewed with Quincy CULLEN.
[2022-11-14] MEDS: atorvastatin 20mg tablet PO SCH (21:38)
[2022-11-15] VITALS (11 sets, daily range): BP systolic 91–100; BP diastolic 50–62; PULSE 60–88; RESP 18–22; TEMP 97.4–98.2; O2SAT 92–99
[2022-11-15] MEDS: albuterol 2.5 MG/3 ML nebule NEB SCH ×2 (03:34→06:59)
--- NOTE | 2022-11-15 06:43 | NUR ---
Problems reprioritized. Patient report given, questions answered & plan of care reviewed with MARYANA. Addendum: 11/15/22 at 0643 by Agustin Bullard RN Amended: Links added.
[2022-11-15] MEDS: furosemide 40mg/4ml inj IV SCH (07:27)
[2022-11-15] MEDS: lisinopril 2.5mg tablet PO SCH (07:27)
[2022-11-15] MEDS: metoprolol tartrate 25mg tablet PO SCH (07:28)
[2022-11-15] MEDS: EMPAGLIFLOZIN 10 MG TABLET PO SCH (08:04)
[2022-11-15] MEDS: clopidogrel 75mg tablet PO SCH (08:04)
[2022-11-15] MEDS: pantoprazole 40mg Tablet.DR PO SCH (08:04)
[2022-11-15] MEDS: methylPREDNISolone sod succ/PF 40mg inj. IV SCH (08:04)
[2022-11-15] MEDS: oxybutynin 5mg tablet PO SCH (08:04)
[2022-11-15] MEDS: heparin, porcine 5000 units/ml vial SQ SCH (08:05)
[2022-11-15] MEDS: HYDROcodone/acetaminophen 10/325mg tab PO PRN (08:15)
--- NOTE | 2022-11-15 12:10 | NUR ---
Son signed Expiration Memorandum. Did not wish to see patient. Glasses, watch and cell phone given to son. Dentures at bedside.
--- NOTE | 2022-11-15 12:33 | NUR ---
[employer] contacted. Ref# [id number] storeperson [place]. Patient will be using [facility] in [place].
[2022-11-16] MEDS ORDERED: levoFLOXACIN 750MG TABLET PO SCH (11:00)
== END 2022-11-15 13:48 ==
LOC: ER 12:11 → ED HOLD 13:37 → PCU 3S 15:20
PROVIDERS: ADMIT Internal Medicine; ATTEND Internal Medicine
PROC: 5A0955A Assistance with Respiratory Ventilation, Greater than 96 Consecutive Hours, High Flow/Velocity Cannula (ICD-10-PCS; principal; 2022-11-06)
PROC: B32T1ZZ Computerized Tomography (CT Scan) of Left Pulmonary Artery using Low Osmolar Contrast (ICD-10-PCS; 2022-11-12)
PROC: B3201ZZ Computerized Tomography (CT Scan) of Thoracic Aorta using Low Osmolar Contrast (ICD-10-PCS; 2022-11-12)
PROC: B32S1ZZ Computerized Tomography (CT Scan) of Right Pulmonary Artery using Low Osmolar Contrast (ICD-10-PCS; 2022-11-12)
PROC: 5A12012 Performance of Cardiac Output, Single, Manual (ICD-10-PCS; 2022-11-15)
DX: I13.0 Hypertensive heart and chronic kidney disease with heart failure and stage 1 through stage 4 chronic kidney disease, or unspecified chronic kidney disease (principal); I21.A1 Myocardial infarction type 2; I50.23 Acute on chronic systolic (congestive) heart failure; J18.9 Pneumonia, unspecified organism; J96.21 Acute and chronic respiratory failure with hypoxia; R65.10 Systemic inflammatory response syndrome (SIRS) of non-infectious origin without acute organ dysfunction; J44.1 Chronic obstructive pulmonary disease with (acute) exacerbation; J44.0 Chronic obstructive pulmonary disease with (acute) lower respiratory infection; Z20.822 Contact with and (suspected) exposure to COVID-19; E78.00 Pure hypercholesterolemia, unspecified; I25.10 Atherosclerotic heart disease of native coronary artery without angina pectoris; E87.6 Hypokalemia; D63.8 Anemia in other chronic diseases classified elsewhere; M47.9 Spondylosis, unspecified; I48.0 Paroxysmal atrial fibrillation; N18.30 Chronic kidney disease, stage 3 unspecified; I73.9 Peripheral vascular disease, unspecified; F17.200 Nicotine dependence, unspecified, uncomplicated; D50.9 Iron deficiency anemia, unspecified; W18.39XA Other fall on same level, initial encounter; I46.9 Cardiac arrest, cause unspecified; Z80.42 Family history of malignant neoplasm of prostate; I49.01 Ventricular fibrillation; I25.2 Old myocardial infarction; Z80.7 Family history of other malignant neoplasms of lymphoid, hematopoietic and related tissues; Z80.8 Family history of malignant neoplasm of other organs or systems; Z82.49 Family history of ischemic heart disease and other diseases of the circulatory system; Z88.1 Allergy status to other antibiotic agents; Z88.2 Allergy status to sulfonamides; Z95.1 Presence of aortocoronary bypass graft; Z90.49 Acquired absence of other specified parts of digestive tract; Z88.8 Allergy status to other drugs, medicaments and biological substances; Z79.899 Other long term (current) drug therapy; Z79.82 Long term (current) use of aspirin; Y93.89 Activity, other specified; Y92.89 Other specified places as the place of occurrence of the external cause; Y99.8 Other external cause status; Z91.199 Patient's noncompliance with other medical treatment and regimen due to unspecified reason; Z71.6 Tobacco abuse counseling
CPT/HCPCS: 36415; 36600; 71045; 71275; 72100; 80048; 80053; 80076; 82803; 82948; 83735; 83880; 84145; 84484; 85007; 85008; 85018; 85025; 87081; 87811; 92950; 93005; 94640; 94760; 97110; 97161; 97530; 99285; A6258; G0378; J0171; J0282; J1644; J1940; J1956; J2270; J2405; J2920; J3370; J3490; J7040; J7050; Q9967